=== PATIENT | male | born 1950 | race African-American/Black ===

== ENCOUNTER 2019-04-06 07:08 | Emergency (ER) | payer OTHER ==
[~2019-04-06] VITALS: Ht 175.3 cm; Wt 102.1 kg
[2019-04-06 08:05] LABS: Basophils # (auto) 0 uL; Basophils % (auto) 0.1 % (0.0-2.0); Eosinophils # (auto) 0 uL; Eosinophils % (auto) 0.3 % (0.0-7.0); Hematocrit 40.2 % (41.0-53.0); Lymphocytes # (auto) 0.7 uL; Lymphocytes % (auto) 11.7 % (10.0-50.0); Mean Corpuscular Hemoglobin 28.2 pg (28.0-32.0); Mean Corpuscular Hgb Conc. 32.4 g/dL (32.0-36.0); Mean Corpuscular Volume 86.8 fL (80.0-100.0); Monocytes # (auto) 0.4 uL; Monocytes % (auto) 6.2 % (0.0-12.0); Neutrophils # (auto) 4.9 uL; Neutrophils % (auto) 81.7 % (37.0-80.0); Platelet Count (auto) 125 10^3/uL (140-450); Red Blood Cells 4.63 10^6/uL (4.5-5.90); Red Cell Distribution Width 14.4 % (11.8-14.3); White Blood Cell 5.9 10^3/uL (4.4-10.8)
[2019-04-06 08:22] LABS: Albumin 3.4 g/dL (3.4-5.0); Calcium 7.8 mg/dL (8.5-10.1); Potassium 4.3 mmol/L (3.5-5.1)
[2019-04-06 08:29] LABS: BUN/Creatinine Ratio 14.1; Bilirubin, Total 1.3 mg/dL (0.2-1.0)
[2019-04-06 08:36] LABS: Total Protein 6.7 g/dL (6.4-8.2)
[2019-04-06] MEDS ORDERED: cefTRIAXone 1GM/50ML D5W 50 ML IV ONE (10:00)
[2019-04-06] MEDS ORDERED: FUROSEMIDE 40 MG/4 ML VIAL IV ONE (10:00)
[2019-04-06 10:44] LABS: Urine Bacteria NONE SEEN /hpf (None Seen); Urine Blood Negative /uL (Negative); Urine Specific Gravity 1.011 (1.001-1.035); Urine WBC <1 /hpf (0 - 3)
[2019-04-06 15:13] VITALS: BP 135/66
== END 2019-04-06 15:36 | disposition short-term general hospital (02) ==
LOC: EDBD 07:08 → ER 07:08
DX: J18.9 Pneumonia, unspecified organism (principal); E11.65 Type 2 diabetes mellitus with hyperglycemia; E66.01 Morbid (severe) obesity due to excess calories; E11.21 Type 2 diabetes mellitus with diabetic nephropathy; I87.8 Other specified disorders of veins; E78.5 Hyperlipidemia, unspecified; Z68.33 Body mass index [BMI] 33.0-33.9, adult
CPT/HCPCS: 36415; 71046; 80053; 81001; 84484; 85025; 87040; 93005; 96365; 96375; 99285; J0696; J1940

== ENCOUNTER 2020-06-04 22:26 | Emergency (ER) | payer OTHER ==
[~2020-06-04] VITALS: Ht 266.7 cm; Wt 93.0 kg
[~2020-06-04 22:26] MED LIST: AMLO-489 PO; ASPI81CH43 PO; DABI150C5 PO; GLIP10TA9 PO; HYDR-4833 PO; LISI-646 PO; METF-370 PO; METO-158 PO; NAPR-591 PO; SIME80CH6 PO; SIMV-8 PO
[2020-06-04 23:49] LABS: Basophils # (auto) 0 10 ^3/uL (0-0.2); Basophils % (auto) 0.3 % (0.0-2.0); Eosinophils # (auto) 0 10 ^3/uL (0-0.8); Eosinophils % (auto) 0.3 % (0.0-7.0); Hematocrit 35.2 % (41.0-53.0); Hemoglobin 11.7 g/dL (13.5-17.5); Lymphocytes # (auto) 0.5 10 ^3/uL (0.4-5.4); Lymphocytes % (auto) 6.3 % (10.0-50.0); Mean Corpuscular Hemoglobin 28.1 pg (28.0-32.0); Mean Corpuscular Hgb Conc. 33.1 g/dL (32.0-36.0); Mean Corpuscular Volume 84.8 fL (80.0-100.0); Monocytes # (auto) 0.6 10 ^3/uL (0-1.3); Monocytes % (auto) 6.9 % (0.0-12.0); Neutrophils # (auto) 7.4 10 ^3/uL (1.6-8.6); Neutrophils % (auto) 86.2 % (37.0-80.0); Nucleated Red Blood Cells % 0.2 %; Platelet Count (auto) 149 10^3/uL (140-450); Red Blood Cells 4.15 10^6/uL (4.5-5.90); Red Cell Distribution Width 15.7 % (11.8-14.3); White Blood Cell 8.6 10^3/uL (4.4-10.8)
[2020-06-05 00:08] LABS: Albumin 3.6 g/dL (3.4-5.0); BUN/Creatinine Ratio 14.8; Calcium 8.3 mg/dL (8.5-10.1); Potassium 3.7 mmol/L (3.5-5.1)
[2020-06-05 00:11] LABS: INR 1.08 (0.9-1.15); Partial Thromboplastin Time 26.6 sec (23.0-31.2)
[2020-06-05 00:17] LABS: Total Protein 6.8 g/dL (6.4-8.2)
[2020-06-05 06:36] VITALS: BP 116/64
== END 2020-06-05 06:47 | disposition home or self-care (01) ==
LOC: ER 22:26 → EDBD 22:26 → ER 06-05 06:47
DX: R06.02 Shortness of breath (principal); J44.9 Chronic obstructive pulmonary disease, unspecified; E11.9 Type 2 diabetes mellitus without complications; E78.5 Hyperlipidemia, unspecified; I10 Essential (primary) hypertension
CPT/HCPCS: 36415; 36600; 71045; 80053; 82805; 83880; 84484; 85025; 85379; 85610; 85730; 93005

== ENCOUNTER 2020-07-03 02:14 | Inpatient (IN) | payer OTHER ==
[~2020-07-03] VITALS: Ht 182.9 cm; Wt 46.0 kg
[2020-07-03] MEDS ORDERED: ACETAMINOPHEN 325 MG TAB PO ONE ×2 (02:44→02:45)
[2020-07-03 03:37] LABS: Basophils # (auto) 0 10 ^3/uL (0-0.2); Basophils % (auto) 0.1 % (0.0-2.0); Eosinophils # (auto) 0 10 ^3/uL (0-0.8); Eosinophils % (auto) 0.3 % (0.0-7.0); Hematocrit 35.3 % (41.0-53.0); Hemoglobin 11.4 g/dL (13.5-17.5); Lymphocytes # (auto) 0.5 10 ^3/uL (0.4-5.4); Lymphocytes % (auto) 9.9 % (10.0-50.0); Mean Corpuscular Hemoglobin 27.8 pg (28.0-32.0); Mean Corpuscular Hgb Conc. 32.4 g/dL (32.0-36.0); Mean Corpuscular Volume 85.9 fL (80.0-100.0); Monocytes # (auto) 0.5 10 ^3/uL (0-1.3); Monocytes % (auto) 9.5 % (0.0-12.0); Neutrophils # (auto) 4.1 10 ^3/uL (1.6-8.6); Neutrophils % (auto) 80.2 % (37.0-80.0); Nucleated Red Blood Cells % 0.1 %; Platelet Count (auto) 143 10^3/uL (140-450); Red Cell Distribution Width 15.1 % (11.8-14.3); White Blood Cell 5.2 10^3/uL (4.4-10.8)
[2020-07-03 03:54] LABS: Albumin 3.4 g/dL (3.4-5.0); Calcium 7.9 mg/dL (8.5-10.1); Potassium 4.6 mmol/L (3.5-5.1)
[2020-07-03 04:01] LABS: BUN/Creatinine Ratio 20.5; Bilirubin, Total 1.6 mg/dL (0.2-1.0); Total Protein 6.9 g/dL (6.4-8.2)
[2020-07-03 04:29] LABS: Urine WBC None Seen /hpf (0 - 3)
[2020-07-03 04:52] LABS: Urine Bacteria NONE SEEN /hpf (None Seen); Urine Blood Negative /uL (Negative); Urine Hyaline Cast FEW /lpf (0 - 2); Urine Specific Gravity 1.013 (1.001-1.035)
[2020-07-03 05:35] LABS: INR 1.02 (0.9-1.15); Partial Thromboplastin Time 46.9 sec (23.0-31.2)
[2020-07-03] MEDS ORDERED: cefTRIAXone 1GM/50ML D5W 50 ML IV ONE (09:45)
[2020-07-03] MEDS ORDERED: DexAMETHasone SOD PHOS 10MG/1ML VIAL INJ IV ONE (09:45)
[2020-07-03] MEDS ORDERED: ENOXAPARIN SOD 100 MG/1 ML SYRINGE SC ONE (09:45)
[2020-07-03] MEDS ORDERED: MORPHINE SULF INJ 2 MG/ML SYRINGE 1ML IV PRN ×2 (10:30)
[2020-07-03] MEDS ORDERED: REMDESIVIR PER PHARMACY 0 ML IV SCH (10:30)
[2020-07-03] MEDS ORDERED: diphenhdrAMINE HCL 50 MG/1 ML VL IV PRN (10:30)
[2020-07-03] MEDS ORDERED: ONDANSETRON HCL 4 MG/2 ML VIAL IV PRN (10:30)
[2020-07-03] MEDS ORDERED: LACTULOSE 20Gm/30ML SOLN PO PRN (10:30)
[2020-07-03] MEDS ORDERED: DEXTROSE (50%) 50ML SYRG IV PRN (10:30)
[2020-07-03] MEDS ORDERED: ACETAMINOPHEN 500 MG TAB PO PRN (10:30)
[2020-07-03] MEDS: SODIUM CHLORIDE 0.9% 1,000 ML IV SCH ×2 (10:30→23:31)
[2020-07-03] MEDS ORDERED: NITROGLYCERIN 0.4 MG SL TAB SL PRN (10:30)
[2020-07-03] MEDS ORDERED: TEMAZEPAM 15 MG CAP PO PRN (10:30)
[2020-07-03 11:05] VITALS: BP 109/90
[2020-07-03] MEDS: InsuLIN REG 1unit/0.01ml Soln (100units/ml) SC SCH ×3 (11:48→21:59)
[2020-07-03] MEDS: ACCU-CHEK COMFORT CURVE STRIP VI SCH ×3 (11:49→21:41)
[2020-07-03 13:15] VITALS: BP 125/82
[2020-07-03] MEDS ORDERED: REMDESIVIR 200 MG in NS 210ml LOADING DOSE ADULT IV ONE (15:00)
[2020-07-03] MEDS ORDERED: ATOR40TA52 PO (15:17)
[2020-07-03] MEDS ORDERED: POTA-264 PO (15:18)
[2020-07-03] MEDS ORDERED: LISI-706 PO (15:19)
[2020-07-03] MEDS ORDERED: FURO20TA3 PO (15:21)
[2020-07-03] MEDS ORDERED: METF-372 PO (15:23)
[2020-07-03] MEDS ORDERED: AMLO-496 PO (15:24)
[2020-07-03] MEDS ORDERED: OMEP-260 PO (15:26)
[2020-07-03] MEDS ORDERED: PRED20TA2 PO (15:27)
[2020-07-03] MEDS ORDERED: SIME180C20 PO (15:38)
[2020-07-03 16:42] VITALS: BP 126/81
[2020-07-03 21:42] LABS: BUN/Creatinine Ratio 19.6; Calcium 8.2 mg/dL (8.5-10.1); Potassium 5.3 mmol/L (3.5-5.1)
[2020-07-03] MEDS: FLORASTOR (S. BOULARDII) 250 MG CAP PO SCH (21:57)
[2020-07-03] MEDS: DOXYCYCLINE 100MG/250ML 250 ML IV SCH (21:57)
[2020-07-03] MEDS: FAMOTIDINE (10MG/ML) 2ML VL IV SCH (21:57)
[2020-07-03] MEDS: ATORVASTATIN 20 MG TAB PO SCH (21:58)
[2020-07-03] MEDS: ENOXAPARIN SOD 40 MG/0.4 ML SYRINGE SC SCH (21:58)
[2020-07-03 22:00] VITALS: BP 116/77
[2020-07-03] MEDS: ALBUTEROL SULF HFA 90MCG INH 200DOSE IN PRN (22:24)
[2020-07-03] MEDS: BUDESONIDE (INHALATION) 180 MCG IH IN SCH (22:24)
[2020-07-03] MEDS: traMADol HCL 50 MG TAB PO PRN (23:45)
[2020-07-04 05:00] VITALS: BP 118/66
[2020-07-04] MEDS: ACCU-CHEK COMFORT CURVE STRIP VI SCH ×4 (06:38→22:00)
[2020-07-04] MEDS: InsuLIN REG 1unit/0.01ml Soln (100units/ml) SC SCH ×4 (06:38→22:46)
[2020-07-04 06:59] LABS: Basophils # (auto) 0 10 ^3/uL (0-0.2); Basophils % (auto) 0.1 % (0.0-2.0); Eosinophils # (auto) 0 10 ^3/uL (0-0.8); Hematocrit 30.9 % (41.0-53.0); Hemoglobin 10.4 g/dL (13.5-17.5); Lymphocytes # (auto) 0.5 10 ^3/uL (0.4-5.4); Lymphocytes % (auto) 23.3 % (10.0-50.0); Mean Corpuscular Hemoglobin 27.7 pg (28.0-32.0); Mean Corpuscular Hgb Conc. 33.5 g/dL (32.0-36.0); Mean Corpuscular Volume 82.6 fL (80.0-100.0); Monocytes # (auto) 0.4 10 ^3/uL (0-1.3); Monocytes % (auto) 17.3 % (0.0-12.0); Neutrophils # (auto) 1.3 10 ^3/uL (1.6-8.6); Neutrophils % (auto) 59.3 % (37.0-80.0); Nucleated Red Blood Cells % 0.1 %; Platelet Count (auto) 120 10^3/uL (140-450); Red Blood Cells 3.74 10^6/uL (4.5-5.90); Red Cell Distribution Width 15.4 % (11.8-14.3); White Blood Cell 2.1 10^3/uL (4.4-10.8)
[2020-07-04] MEDS ORDERED: IVERMECTIN 3 MG TAB PO ONE (07:00)
[2020-07-04] MEDS: BUDESONIDE (INHALATION) 180 MCG IH IN SCH ×3 (07:00→20:09)
[2020-07-04 07:19] LABS: Albumin 3.2 g/dL (3.4-5.0); Potassium 4.6 mmol/L (3.5-5.1)
[2020-07-04 07:23] LABS: BUN/Creatinine Ratio 22.1; Bilirubin, Total 1.1 mg/dL (0.2-1.0); Calcium 8.2 mg/dL (8.5-10.1); Total Protein 6.5 g/dL (6.4-8.2)
[2020-07-04 09:00] VITALS: BP 118/77
[2020-07-04] MEDS: DexAMETHasone SOD PHOS 10MG/1ML VIAL INJ IV SCH (09:30)
[2020-07-04] MEDS: ASCORBIC ACID 1,000 MG TAB PO SCH (09:31)
[2020-07-04] MEDS: ASPirin 81 mg TAB PO SCH (09:31)
[2020-07-04] MEDS: DOXYCYCLINE 100MG/250ML 250 ML IV SCH ×2 (09:31→21:46)
[2020-07-04] MEDS: FAMOTIDINE (10MG/ML) 2ML VL IV SCH (09:31)
[2020-07-04] MEDS: ZINC SULFATE 220mg CAP or TAB PO SCH (09:31)
[2020-07-04] MEDS: FLORASTOR (S. BOULARDII) 250 MG CAP PO SCH ×2 (09:31→21:46)
[2020-07-04] MEDS: CHOLECALCIFEROL (VITD3) 2,000 UNIT CAP/TAB PO SCH (09:31)
[2020-07-04] MEDS: ENOXAPARIN SOD 40 MG/0.4 ML SYRINGE SC SCH ×2 (09:32→21:47)
[2020-07-04] MEDS: ALBUTEROL SULF HFA 90MCG INH 200DOSE IN PRN ×3 (10:40→20:09)
[2020-07-04 11:19] LABS: Cholesterol 122 mg/dL (< 200); HDL Cholesterol 63 mg/dL (40-59); LDL Cholesterol 60 mg/dL (< 100); Triglycerides 70 mg/dL (< 150)
[2020-07-04] MEDS: SODIUM CHLORIDE 0.9% 1,000 ML IV SCH (12:49)
[2020-07-04 13:00] VITALS: BP 123/76
[2020-07-04] MEDS: REMDESIVIR 100mg 100 MG in SODIUM CHL 0.9% 230 ML IV SCH (16:30)
[2020-07-04 17:00] VITALS: BP 121/78
[2020-07-04] MEDS: ATORVASTATIN 20 MG TAB PO SCH (21:47)
[2020-07-04 22:00] VITALS: BP 116/73
[2020-07-05 05:00] VITALS: BP 113/74
[2020-07-05] MEDS: ALBUTEROL SULF HFA 90MCG INH 200DOSE IN PRN ×2 (06:55→21:49)
[2020-07-05] MEDS: InsuLIN REG 1unit/0.01ml Soln (100units/ml) SC SCH ×4 (07:00→23:15)
[2020-07-05] MEDS: ACCU-CHEK COMFORT CURVE STRIP VI SCH ×4 (07:04→22:00)
[2020-07-05 09:00] VITALS: BP 127/84
[2020-07-05] MEDS: traMADol HCL 50 MG TAB PO PRN (10:05)
[2020-07-05] MEDS: DexAMETHasone SOD PHOS 10MG/1ML VIAL INJ IV SCH (10:40)
[2020-07-05] MEDS: ZINC SULFATE 220mg CAP or TAB PO SCH (10:41)
[2020-07-05] MEDS: DOXYCYCLINE 100MG/250ML 250 ML IV SCH ×2 (10:41→21:50)
[2020-07-05] MEDS: FAMOTIDINE (10MG/ML) 2ML VL IV SCH (10:41)
[2020-07-05] MEDS: CHOLECALCIFEROL (VITD3) 2,000 UNIT CAP/TAB PO SCH (10:42)
[2020-07-05] MEDS: ASPirin 81 mg TAB PO SCH (10:42)
[2020-07-05] MEDS: ASCORBIC ACID 1,000 MG TAB PO SCH (10:42)
[2020-07-05] MEDS: FLORASTOR (S. BOULARDII) 250 MG CAP PO SCH ×2 (10:42→21:51)
[2020-07-05] MEDS: ENOXAPARIN SOD 40 MG/0.4 ML SYRINGE SC SCH ×2 (10:43→21:52)
[2020-07-05 11:15] LABS: Albumin 3.2 g/dL (3.4-5.0); Calcium 8.8 mg/dL (8.5-10.1); Potassium 4.3 mmol/L (3.5-5.1)
[2020-07-05 11:18] LABS: BUN/Creatinine Ratio 19.7; Total Protein 6.7 g/dL (6.4-8.2)
[2020-07-05] MEDS ORDERED: DOCUSATE SOD 100 MG CAP PO ONE (11:30)
[2020-07-05 13:00] VITALS: BP 113/71
[2020-07-05] MEDS: REMDESIVIR 100mg 100 MG in SODIUM CHL 0.9% 230 ML IV SCH (15:52)
[2020-07-05 17:00] VITALS: BP 144/94
[2020-07-05] MEDS ORDERED: cefTRIAXone 1GM/50ML D5W 50 ML IV ONE (17:30)
[2020-07-05] MEDS: BUDESONIDE (INHALATION) 180 MCG IH IN SCH (21:49)
[2020-07-05] MEDS: DOCUSATE SOD 100 MG CAP PO SCH (21:50)
[2020-07-05] MEDS: ATORVASTATIN 20 MG TAB PO SCH (21:51)
[2020-07-05 22:00] VITALS: BP 146/79
[2020-07-06 05:00] VITALS: BP 116/65
[2020-07-06] MEDS: ALBUTEROL SULF HFA 90MCG INH 200DOSE IN PRN ×2 (06:25→19:21)
[2020-07-06] MEDS: BUDESONIDE (INHALATION) 180 MCG IH IN SCH ×2 (06:25→19:21)
[2020-07-06 06:27] LABS: Albumin 3.1 g/dL (3.4-5.0); Calcium 8.7 mg/dL (8.5-10.1); Potassium 4.6 mmol/L (3.5-5.1)
[2020-07-06] MEDS: ACCU-CHEK COMFORT CURVE STRIP VI SCH ×4 (06:29→21:48)
[2020-07-06 06:32] LABS: Bilirubin, Total 0.8 mg/dL (0.2-1.0); Total Protein 6.6 g/dL (6.4-8.2)
[2020-07-06] MEDS: InsuLIN REG 1unit/0.01ml Soln (100units/ml) SC SCH ×4 (06:34→21:04)
[2020-07-06] MEDS: cefTRIAXone 1GM/50ML D5W 50 ML IV SCH (09:09)
[2020-07-06] MEDS: DexAMETHasone SOD PHOS 10MG/1ML VIAL INJ IV SCH (09:09)
[2020-07-06] MEDS: ASPirin 81 mg TAB PO SCH (09:10)
[2020-07-06] MEDS: DOCUSATE SOD 100 MG CAP PO SCH ×2 (09:10→21:46)
[2020-07-06] MEDS: ZINC SULFATE 220mg CAP or TAB PO SCH (09:10)
[2020-07-06] MEDS: FAMOTIDINE (10MG/ML) 2ML VL IV SCH (09:10)
[2020-07-06] MEDS: FLORASTOR (S. BOULARDII) 250 MG CAP PO SCH ×2 (09:10→21:46)
[2020-07-06] MEDS: CHOLECALCIFEROL (VITD3) 2,000 UNIT CAP/TAB PO SCH (09:10)
[2020-07-06] MEDS: ASCORBIC ACID 1,000 MG TAB PO SCH (09:10)
[2020-07-06] MEDS: ENOXAPARIN SOD 40 MG/0.4 ML SYRINGE SC SCH (09:11)
[2020-07-06 09:40] VITALS: BP 116/65
[2020-07-06] MEDS: DOXYCYCLINE 100MG/250ML 250 ML IV SCH ×2 (12:16→21:46)
[2020-07-06 13:00] VITALS: BP 126/83
[2020-07-06] MEDS ORDERED: DEXTROSE (50%) 50ML SYRG IV PRN (14:45)
[2020-07-06] MEDS: REMDESIVIR 100mg 100 MG in SODIUM CHL 0.9% 230 ML IV SCH (16:12)
[2020-07-06] MEDS: traMADol HCL 50 MG TAB PO PRN (16:14)
[2020-07-06 17:00] VITALS: BP 131/82
[2020-07-06] MEDS: glipiZIDE 5 MG TAB PO SCH (18:07)
[2020-07-06] MEDS: ATORVASTATIN 20 MG TAB PO SCH (21:47)
[2020-07-06] MEDS: METOPROLOL TARTRATE 50 MG TAB PO SCH (21:47)
[2020-07-06] MEDS: DABIGATRAN 75 MG CAP PO SCH (21:58)
[2020-07-07 05:00] VITALS: BP 111/69
[2020-07-07 05:45] LABS: Basophils # (auto) 0 10 ^3/uL (0-0.2); Basophils % (auto) 0.1 % (0.0-2.0); Eosinophils # (auto) 0 10 ^3/uL (0-0.8); Eosinophils % (auto) 0.1 % (0.0-7.0); Hematocrit 33.3 % (41.0-53.0); Hemoglobin 11.3 g/dL (13.5-17.5); Lymphocytes % (auto) 20.8 % (10.0-50.0); Mean Corpuscular Hemoglobin 28.1 pg (28.0-32.0); Mean Corpuscular Volume 82.6 fL (80.0-100.0); Monocytes # (auto) 0.7 10 ^3/uL (0-1.3); Monocytes % (auto) 13.2 % (0.0-12.0); Neutrophils # (auto) 3.3 10 ^3/uL (1.6-8.6); Neutrophils % (auto) 65.8 % (37.0-80.0); Nucleated Red Blood Cells % 0.3 %; Platelet Count (auto) 168 10^3/uL (140-450); Red Blood Cells 4.03 10^6/uL (4.5-5.90); Red Cell Distribution Width 15.2 % (11.8-14.3)
[2020-07-07 06:06] LABS: Potassium 4.6 mmol/L (3.5-5.1)
[2020-07-07] MEDS: InsuLIN REG 1unit/0.01ml Soln (100units/ml) SC SCH ×4 (06:10→21:25)
[2020-07-07] MEDS: ACCU-CHEK COMFORT CURVE STRIP VI SCH ×4 (06:10→21:24)
[2020-07-07] MEDS: glipiZIDE 5 MG TAB PO SCH ×2 (06:10→17:57)
[2020-07-07 06:13] LABS: Albumin 3.3 g/dL (3.4-5.0); BUN/Creatinine Ratio 21.3; Bilirubin, Total 0.8 mg/dL (0.2-1.0); Calcium 9.4 mg/dL (8.5-10.1); Total Protein 6.9 g/dL (6.4-8.2)
[2020-07-07] MEDS: ALBUTEROL SULF HFA 90MCG INH 200DOSE IN PRN (08:40)
[2020-07-07] MEDS: BUDESONIDE (INHALATION) 180 MCG IH IN SCH ×2 (08:41→18:53)
[2020-07-07 09:00] VITALS: BP 101/57
[2020-07-07] MEDS: cefTRIAXone 1GM/50ML D5W 50 ML IV SCH (09:26)
[2020-07-07] MEDS: DOXYCYCLINE 100MG/250ML 250 ML IV SCH ×2 (09:27→21:30)
[2020-07-07] MEDS: FAMOTIDINE (10MG/ML) 2ML VL IV SCH (09:27)
[2020-07-07] MEDS: ZINC SULFATE 220mg CAP or TAB PO SCH (09:27)
[2020-07-07] MEDS: DexAMETHasone SOD PHOS 10MG/1ML VIAL INJ IV SCH (09:27)
[2020-07-07] MEDS: FLORASTOR (S. BOULARDII) 250 MG CAP PO SCH ×2 (09:28→21:22)
[2020-07-07] MEDS: DOCUSATE SOD 100 MG CAP PO SCH ×2 (09:28→21:22)
[2020-07-07] MEDS: DABIGATRAN 75 MG CAP PO SCH ×2 (09:28→21:30)
[2020-07-07] MEDS: METOPROLOL TARTRATE 50 MG TAB PO SCH ×2 (09:28→21:23)
[2020-07-07] MEDS: ASCORBIC ACID 1,000 MG TAB PO SCH (09:29)
[2020-07-07] MEDS: CHOLECALCIFEROL (VITD3) 2,000 UNIT CAP/TAB PO SCH (09:29)
[2020-07-07] MEDS: REMDESIVIR 100mg 100 MG in SODIUM CHL 0.9% 230 ML IV SCH (15:30)
[2020-07-07 17:00] VITALS: BP 136/83
[2020-07-07] MEDS: ATORVASTATIN 20 MG TAB PO SCH (21:23)
[2020-07-07 22:00] VITALS: BP 148/87
[2020-07-08] MEDS: ALBUTEROL SULF HFA 90MCG INH 200DOSE IN PRN ×2 (03:47→20:44)
[2020-07-08] MEDS: traMADol HCL 50 MG TAB PO PRN ×2 (04:05→21:50)
[2020-07-08 05:00] VITALS: BP 112/62
[2020-07-08] MEDS: glipiZIDE 5 MG TAB PO SCH ×2 (05:52→17:33)
[2020-07-08] MEDS: InsuLIN REG 1unit/0.01ml Soln (100units/ml) SC SCH ×4 (05:53→21:50)
[2020-07-08] MEDS: ACCU-CHEK COMFORT CURVE STRIP VI SCH ×4 (05:53→21:26)
[2020-07-08] MEDS: BUDESONIDE (INHALATION) 180 MCG IH IN SCH ×2 (06:38→20:45)
[2020-07-08 06:53] LABS: Calcium 8.9 mg/dL (8.5-10.1); Potassium 4.2 mmol/L (3.5-5.1)
[2020-07-08 08:57] VITALS: BP 100/59
[2020-07-08] MEDS: FAMOTIDINE (10MG/ML) 2ML VL IV SCH (09:20)
[2020-07-08] MEDS: DexAMETHasone SOD PHOS 10MG/1ML VIAL INJ IV SCH (09:20)
[2020-07-08] MEDS: cefTRIAXone 1GM/50ML D5W 50 ML IV SCH (09:20)
[2020-07-08] MEDS: ZINC SULFATE 220mg CAP or TAB PO SCH (09:21)
[2020-07-08] MEDS: DOCUSATE SOD 100 MG CAP PO SCH ×3 (09:21→21:42)
[2020-07-08] MEDS: DOXYCYCLINE 100MG/250ML 250 ML IV SCH (09:21)
[2020-07-08] MEDS: FLORASTOR (S. BOULARDII) 250 MG CAP PO SCH ×2 (09:22→21:25)
[2020-07-08] MEDS: METOPROLOL TARTRATE 50 MG TAB PO SCH ×2 (09:22→21:42)
[2020-07-08] MEDS: DABIGATRAN 75 MG CAP PO SCH ×2 (09:23→21:26)
[2020-07-08] MEDS: CHOLECALCIFEROL (VITD3) 2,000 UNIT CAP/TAB PO SCH (09:24)
[2020-07-08] MEDS: ASCORBIC ACID 1,000 MG TAB PO SCH (09:24)
[2020-07-08 12:30] VITALS: BP 129/89
[2020-07-08 16:35] VITALS: BP 121/62
[2020-07-08] MEDS: ATORVASTATIN 20 MG TAB PO SCH (21:26)
[2020-07-08 22:00] VITALS: BP 134/85
[2020-07-09 05:00] VITALS: BP 116/90
[2020-07-09] MEDS: InsuLIN REG 1unit/0.01ml Soln (100units/ml) SC SCH ×4 (06:00→17:36)
[2020-07-09] MEDS: ALBUTEROL SULF HFA 90MCG INH 200DOSE IN PRN (06:19)
[2020-07-09] MEDS: BUDESONIDE (INHALATION) 180 MCG IH IN SCH ×2 (06:19→20:50)
[2020-07-09] MEDS: ACCU-CHEK COMFORT CURVE STRIP VI SCH ×3 (07:08→17:34)
[2020-07-09] MEDS: glipiZIDE 5 MG TAB PO SCH ×2 (07:38→17:36)
[2020-07-09 08:30] VITALS: BP 124/71
[2020-07-09] MEDS: cefTRIAXone 1GM/50ML D5W 50 ML IV SCH (10:16)
[2020-07-09] MEDS: DexAMETHasone SOD PHOS 10MG/1ML VIAL INJ IV SCH (10:16)
[2020-07-09] MEDS: FAMOTIDINE (10MG/ML) 2ML VL IV SCH (10:16)
[2020-07-09] MEDS: ZINC SULFATE 220mg CAP or TAB PO SCH (10:17)
[2020-07-09] MEDS: DABIGATRAN 75 MG CAP PO SCH (10:17)
[2020-07-09] MEDS: DOCUSATE SOD 100 MG CAP PO SCH (10:17)
[2020-07-09] MEDS: CHOLECALCIFEROL (VITD3) 2,000 UNIT CAP/TAB PO SCH (10:18)
[2020-07-09] MEDS: FLORASTOR (S. BOULARDII) 250 MG CAP PO SCH (10:19)
[2020-07-09] MEDS: ASCORBIC ACID 1,000 MG TAB PO SCH (10:19)
[2020-07-09] MEDS: METOPROLOL TARTRATE 50 MG TAB PO SCH (10:20)
[2020-07-09] MEDS ORDERED: CHOL20007 PO (11:05)
[2020-07-09 11:23] VITALS: BP 118/68
[2020-07-09 13:12] VITALS: BP 124/71
[2020-07-09] MEDS: traMADol HCL 50 MG TAB PO PRN (16:26)
[2020-07-09 17:06] VITALS: BP 134/72
== END 2020-07-09 20:25 | disposition home health service (06) | DRG 871 ==
LOC: EDBD 02:14 → ER 02:14 → TELE 02:15 → TELE-WESTW 13:28
PROVIDERS: ADMIT Internal Medicine; ATTEND Internal Medicine Nephrology
PROC: XW033E5 Introduction of Remdesivir Anti-infective into Peripheral Vein, Percutaneous Approach, New Technology Group 5 (ICD-10-PCS; principal; 2020-07-03)
DX: A41.89 Other specified sepsis (principal); U07.1 COVID-19; J12.82 Pneumonia due to coronavirus disease 2019; J96.21 Acute and chronic respiratory failure with hypoxia; I21.A1 Myocardial infarction type 2; N17.0 Acute kidney failure with tubular necrosis; J44.0 Chronic obstructive pulmonary disease with (acute) lower respiratory infection; R65.20 Severe sepsis without septic shock; E78.5 Hyperlipidemia, unspecified; E11.65 Type 2 diabetes mellitus with hyperglycemia; D63.8 Anemia in other chronic diseases classified elsewhere; I12.9 Hypertensive chronic kidney disease with stage 1 through stage 4 chronic kidney disease, or unspecified chronic kidney disease; N18.31 Chronic kidney disease, stage 3a; E11.21 Type 2 diabetes mellitus with diabetic nephropathy; E11.22 Type 2 diabetes mellitus with diabetic chronic kidney disease; Z79.4 Long term (current) use of insulin; Z99.81 Dependence on supplemental oxygen; Z88.8 Allergy status to other drugs, medicaments and biological substances
CPT/HCPCS: 36415; 71045; 76775; 80048; 80053; 80061; 81001; 82550; 82570; 82962; 83036; 83605; 83880; 84156; 84300; 84443; 84484; 84550; 85025; 85379; 85610; 85652; 85730; 86141; 86850; 86900; 86901; 87040; 87426; 93005; 93306; 94640; 96365; 96372; 96375; G0378; J0696; J1100; J1815; J3490

== ENCOUNTER 2020-08-03 12:47 | Inpatient (IN) | payer OTHER ==
[~2020-08-03] VITALS: Ht 175.3 cm; Wt 121.3 kg
[~2020-08-03 12:47] MED LIST changes: -AMLO-489 PO; +AMLO-496 PO; -ASPI81CH43 PO; +ATOR40TA52 PO; +CHOL20007 PO; -HYDR-4833 PO; -LISI-646 PO; -METF-370 PO; +METF-372 PO; -NAPR-591 PO; +OMEP-260 PO; +SIME180C20 PO; -SIME80CH6 PO; -SIMV-8 PO
[2020-08-03] MEDS ORDERED: methylPREDNISolone SOD SUCC 125 MG/2 ML VL IV ONE (13:00)
[2020-08-03] MEDS ORDERED: ALBUTEROL SULF 2.5 MG/0.5ML(0.5%) NEB SOLN HHN ONE (13:00)
[2020-08-03 14:25] LABS: Basophils # (auto) 0 10 ^3/uL (0-0.2); Basophils % (auto) 0.3 % (0.0-2.0); Eosinophils # (auto) 0 10 ^3/uL (0-0.8); Hemoglobin 12.3 g/dL (13.5-17.5); Lymphocytes # (auto) 1.2 10 ^3/uL (0.4-5.4); Monocytes # (auto) 1.1 10 ^3/uL (0-1.3); Nucleated Red Blood Cells % 0.1 %
[2020-08-03 14:28] LABS: Eosinophils % (auto) 0.1 % (0.0-7.0); Lymphocytes % (auto) 9.7 % (10.0-50.0); Mean Corpuscular Hemoglobin 26.7 pg (28.0-32.0); Mean Corpuscular Hgb Conc. 32.3 g/dL (32.0-36.0); Mean Corpuscular Volume 82.4 fL (80.0-100.0); Monocytes % (auto) 8.9 % (0.0-12.0); Neutrophils # (auto) 10.1 10 ^3/uL (1.6-8.6); Platelet Count (auto) 216 10^3/uL (140-450); Red Blood Cells 4.61 10^6/uL (4.5-5.90); Red Cell Distribution Width 16.6 % (11.8-14.3); White Blood Cell 12.5 10^3/uL (4.4-10.8)
[2020-08-03 14:49] LABS: Albumin 3.4 g/dL (3.4-5.0); Calcium 9.2 mg/dL (8.5-10.1); Magnesium 2.3 mg/dL (1.6-2.6); Potassium 4.2 mmol/L (3.5-5.1)
[2020-08-03 14:52] LABS: Lactic Acid w/Reflex 4.3 mmol/L (0.4-2.0)
[2020-08-03 14:53] LABS: Bilirubin, Total 1.5 mg/dL (0.2-1.0); Total Protein 7.6 g/dL (6.4-8.2)
[2020-08-03 15:13] LABS: BUN/Creatinine Ratio 25.7; CRP High Sensitivity 1.99 mg/dL (< 0.3)
[2020-08-03] MEDS ORDERED: AZITHROMYCIN 500MG/ 250ML 250 ML IV ONE (15:45)
[2020-08-03] MEDS ORDERED: DEXTROSE (50%) 50ML SYRG IV PRN (17:00)
[2020-08-03] MEDS ORDERED: SODIUM CHLORIDE 0.9% 1,000 ML IV ONE (17:00)
[2020-08-03] MEDS ORDERED: NITROGLYCERIN 0.4 MG SL TAB SL PRN (17:00)
[2020-08-03] MEDS ORDERED: ONDANSETRON HCL 4 MG/2 ML VIAL IV PRN (17:00)
[2020-08-03] MEDS ORDERED: MORPHINE SULF INJ 2 MG/ML SYRINGE 1ML IV PRN ×2 (17:00)
[2020-08-03] MEDS ORDERED: HYDROcodone-ACET 5/325MG TAB PO PRN (17:00)
[2020-08-03] MEDS ORDERED: IOHEXOL 350 MG/ML 100ML IJ ONE (17:19)
[2020-08-03] MEDS ORDERED: ENOXAPARIN SOD 120 MG/0.8 ML SYRINGE SC SCH (18:00)
[2020-08-03] MEDS: ACCU-CHEK COMFORT CURVE STRIP VI SCH ×2 (18:10→22:17)
[2020-08-03] MEDS: InsuLIN REG 1unit/0.01ml Soln (100units/ml) SC SCH ×2 (18:15→22:18)
[2020-08-03] MEDS: ALBUTEROL SULF 2.5 MG/0.5ML(0.5%) NEB SOLN NEB SCH (18:54)
[2020-08-03] MEDS: BUDESONIDE (INHALATION) 0.5 MG/2 ML NEB NEB SCH (18:54)
[2020-08-03] MEDS: IPRATROPIUM BROM 0.5 MG/2.5ML INH SOL NEB SCH (18:55)
[2020-08-03] MEDS: ENOXAPARIN SOD 120 MG/0.8 ML SYRINGE SC SCH (20:12)
[2020-08-03 21:35] VITALS: BP 136/71
[2020-08-03 22:00] VITALS: BP 113/71
[2020-08-03] MEDS: ATORVASTATIN 20 MG TAB PO SCH (22:17)
[2020-08-03 23:00] VITALS: BP 113/72
[2020-08-04] VITALS (45 sets, daily range): BP systolic 54–152; BP diastolic 36–97
[2020-08-04 05:16] LABS: Basophils # (auto) 0 10 ^3/uL (0-0.2); Basophils % (auto) 0.1 % (0.0-2.0); Eosinophils # (auto) 0 10 ^3/uL (0-0.8); Hematocrit 30.9 % (41.0-53.0); Hemoglobin 10.4 g/dL (13.5-17.5); Lymphocytes # (auto) 0.4 10 ^3/uL (0.4-5.4); Lymphocytes % (auto) 4.5 % (10.0-50.0); Mean Corpuscular Hemoglobin 27.2 pg (28.0-32.0); Mean Corpuscular Hgb Conc. 33.8 g/dL (32.0-36.0); Mean Corpuscular Volume 80.6 fL (80.0-100.0); Monocytes # (auto) 0.9 10 ^3/uL (0-1.3); Monocytes % (auto) 9.6 % (0.0-12.0); Neutrophils # (auto) 7.8 10 ^3/uL (1.6-8.6); Neutrophils % (auto) 85.8 % (37.0-80.0); Platelet Count (auto) 161 10^3/uL (140-450); Red Blood Cells 3.83 10^6/uL (4.5-5.90); Red Cell Distribution Width 16.7 % (11.8-14.3); White Blood Cell 9.1 10^3/uL (4.4-10.8)
[2020-08-04 05:37] LABS: Potassium 4.5 mmol/L (3.5-5.1)
[2020-08-04 05:43] LABS: BUN/Creatinine Ratio 24.6; Calcium 8.9 mg/dL (8.5-10.1)
[2020-08-04] MEDS: ACCU-CHEK COMFORT CURVE STRIP VI SCH ×4 (05:59→23:33)
[2020-08-04] MEDS: IPRATROPIUM BROM 0.5 MG/2.5ML INH SOL NEB SCH ×3 (06:04→22:32)
[2020-08-04] MEDS: ENOXAPARIN SOD 120 MG/0.8 ML SYRINGE SC SCH (06:05)
[2020-08-04] MEDS: ALBUTEROL SULF 2.5 MG/0.5ML(0.5%) NEB SOLN NEB SCH ×3 (06:05→22:32)
[2020-08-04] MEDS: InsuLIN REG 1unit/0.01ml Soln (100units/ml) SC SCH ×4 (06:06→23:33)
[2020-08-04] MEDS ORDERED: cefTRIAXone 1GM/50ML D5W 50 ML IV SCH (09:00)
[2020-08-04] MEDS: METOPROLOL TARTRATE 25 MG TAB PO SCH ×2 (09:38→20:30)
[2020-08-04] MEDS ORDERED: FAMOTIDINE 20 MG TAB PO SCH (10:00)
[2020-08-04] MEDS ORDERED: AZITHROMYCIN 500MG/ 250ML 250 ML IV SCH (10:00)
[2020-08-04] MEDS ORDERED: ENOXAPARIN SOD 40 MG/0.4 ML SYRINGE SC SCH (10:00)
[2020-08-04] MEDS ORDERED: amLODIPine BESYLATE 5 MG TAB PO SCH (10:00)
[2020-08-04] MEDS: BUDESONIDE (INHALATION) 0.5 MG/2 ML NEB NEB SCH ×2 (10:13→22:33)
[2020-08-04] MEDS ORDERED: ETOMIDATE (2MG/ML) 20ML VIAL IV ONE (10:42)
[2020-08-04] MEDS ORDERED: fentaNYL Drip 2500mCg/250mlNS 250 ML IV ONE (10:43)
[2020-08-04] MEDS ORDERED: ROCURONIUM 10MG/ML 10ML VIAL IV ONE (10:43)
[2020-08-04] MEDS ORDERED: MIDAZOLAM DRIP 50 mg/50mL 50 ML IV SCH (10:45)
[2020-08-04] MEDS ORDERED: fentaNYL Drip 2500mCg/250mlNS 250 ML IV SCH (10:45)
[2020-08-04] MEDS: fentaNYL Drip 2500mCg/250mlNS 250 ML IV SCH (11:45)
[2020-08-04] MEDS: MIDAZOLAM DRIP 50 mg/50mL 50 ML IV SCH ×2 (11:45→14:30)
[2020-08-04] MEDS ORDERED: hydrALAZINE HCL 20 MG/ML VL IV PRN (12:15)
[2020-08-04] MEDS ORDERED: hydrALAZINE HCL 20 MG/ML VL ONE (12:19)
[2020-08-04 14:23] LABS: INR 1.07 (0.9-1.15); Partial Thromboplastin Time 32.2 sec (23.0-31.2)
[2020-08-04] MEDS: SODIUM CHLORIDE 0.9% 1,000 ML IV SCH (15:18)
[2020-08-04] MEDS: NOREPINEPHRINE 8 MG/250ML KIT 250 ML IV SCH ×2 (16:00→21:00)
[2020-08-04] MEDS: ACETAMINOPHEN 500 MG TAB PO PRN (21:32)
[2020-08-04] MEDS: methylPREDNISolone SOD SUCC 40 MG/ML VL IV SCH (21:32)
[2020-08-04] MEDS: ENOXAPARIN SOD 100 MG/1 ML SYRINGE SC SCH (21:32)
[2020-08-04] MEDS: ATORVASTATIN 20 MG TAB PO SCH (21:32)
[2020-08-04] MEDS ORDERED: INSULIN LANTUS (GLARGINE) 1 /0.01ml (100units/ml) SC SCH (22:00)
[2020-08-04] MEDS ORDERED: ALBUMIN 5% 250 ML IV ONE (22:30)
[2020-08-05] VITALS (100 sets, daily range): BP systolic 75–157; BP diastolic 52–102
[2020-08-05 00:31] LABS: Urine Blood 3+ /uL (Negative)
[2020-08-05 00:54] LABS: Urine Amorphous Crystal FEW /hpf (None Seen); Urine Bacteria MOD /hpf (None Seen); Urine Hyaline Cast MOD /lpf (0 - 2); Urine Mucus FEW (None Seen); Urine WBC 28 /hpf (0 - 3)
[2020-08-05] MEDS: ALBUTEROL SULF 2.5 MG/0.5ML(0.5%) NEB SOLN NEB SCH ×5 (02:42→22:24)
[2020-08-05] MEDS: IPRATROPIUM BROM 0.5 MG/2.5ML INH SOL NEB SCH ×6 (02:42→22:24)
[2020-08-05] MEDS: fentaNYL Drip 2500mCg/250mlNS 250 ML IV SCH ×2 (04:09→15:53)
[2020-08-05] MEDS: ACCU-CHEK COMFORT CURVE STRIP VI SCH ×3 (06:18→18:15)
[2020-08-05] MEDS: methylPREDNISolone SOD SUCC 40 MG/ML VL IV SCH (06:18)
[2020-08-05] MEDS: InsuLIN REG 1unit/0.01ml Soln (100units/ml) SC SCH ×3 (06:21→18:00)
[2020-08-05 07:51] LABS: Hematocrit 35.8 % (41.0-53.0); Hemoglobin 11.7 g/dL (13.5-17.5); Mean Corpuscular Hemoglobin 26.5 pg (28.0-32.0); Mean Corpuscular Hgb Conc. 32.6 g/dL (32.0-36.0); Mean Corpuscular Volume 81.2 fL (80.0-100.0); Platelet Count (auto) 193 10^3/uL (140-450); Red Blood Cells 4.41 10^6/uL (4.5-5.90); Red Cell Distribution Width 16.7 % (11.8-14.3)
[2020-08-05 08:00] LABS: Albumin 3.1 g/dL (3.4-5.0); Calcium 8.9 mg/dL (8.5-10.1); Magnesium 1.8 mg/dL (1.6-2.6); Potassium 4.9 mmol/L (3.5-5.1)
[2020-08-05 08:01] LABS: Band Neutrophils % (manual) 0; Basophils % (manual) 0 (0.0-2.0); Blast Cells 0; Eosinophils % (manual) 0 (0-7); Metamyelocytes % 0; Myelocytes % 0; Promyelocytes % 0; Reactive Lymphocytes 0
[2020-08-05 08:04] LABS: BUN/Creatinine Ratio 19.7; Bilirubin, Total 1.4 mg/dL (0.2-1.0); Total Protein 7.4 g/dL (6.4-8.2)
[2020-08-05 08:11] LABS: Lactic Acid w/Reflex 2.9 mmol/L (0.4-2.0)
[2020-08-05 09:00] LABS: Lymphocytes % (manual) 3 (10.0-50.0); Monocytes % (manual) 11 (0-12)
[2020-08-05] MEDS: METOPROLOL TARTRATE 25 MG TAB PO SCH (10:00)
[2020-08-05] MEDS: BUDESONIDE (INHALATION) 0.5 MG/2 ML NEB NEB SCH ×2 (10:01→22:24)
[2020-08-05] MEDS ORDERED: ERGOCALCIFEROL 50,000 UNIT(1.25MG) CAP PO SCH (10:15)
[2020-08-05] MEDS: SODIUM CHLORIDE 0.9% 1,000 ML IV SCH (11:00)
[2020-08-05] MEDS: PANTOPRAZOLE 40 MG/10 ML VIAL INJ IV SCH (12:06)
[2020-08-05] MEDS: ENOXAPARIN SOD 100 MG/1 ML SYRINGE SC SCH ×2 (12:06→22:00)
[2020-08-05] MEDS: MEROPENEM 1GM IVPB 100 ML IV SCH ×2 (12:06→22:00)
[2020-08-05] MEDS: MIDAZOLAM DRIP 50 mg/50mL 50 ML IV SCH ×2 (12:09→15:53)
[2020-08-05] MEDS ORDERED: MAGNESIUM SULFATE 1GM/100ML 100 ML IV ONE (14:15)
[2020-08-05] MEDS: NOREPINEPHRINE 8 MG/250ML KIT 250 ML IV SCH (15:30)
[2020-08-05] MEDS: INSULIN LANTUS (GLARGINE) 1 /0.01ml (100units/ml) SC SCH (22:00)
[2020-08-05] MEDS: ATORVASTATIN 20 MG TAB PO SCH (22:00)
[2020-08-06] VITALS (109 sets, daily range): BP systolic 76–157; BP diastolic 41–84
[2020-08-06] MEDS: ACETAMINOPHEN 500 MG TAB PO PRN (00:31)
[2020-08-06] MEDS: MIDAZOLAM DRIP 50 mg/50mL 50 ML IV SCH ×2 (01:57→18:00)
[2020-08-06] MEDS: ALBUTEROL SULF 2.5 MG/0.5ML(0.5%) NEB SOLN NEB SCH ×6 (02:46→22:14)
[2020-08-06] MEDS: IPRATROPIUM BROM 0.5 MG/2.5ML INH SOL NEB SCH ×6 (02:46→22:14)
[2020-08-06] MEDS: SODIUM CHLORIDE 0.9% 1,000 ML IV SCH (05:49)
[2020-08-06] MEDS: ACCU-CHEK COMFORT CURVE STRIP VI SCH ×4 (05:49→18:03)
[2020-08-06] MEDS: InsuLIN REG 1unit/0.01ml Soln (100units/ml) SC SCH ×4 (06:00→18:36)
[2020-08-06 07:37] LABS: Albumin 2.7 g/dL (3.4-5.0); Calcium 8.7 mg/dL (8.5-10.1); Magnesium 2.4 mg/dL (1.6-2.6); Potassium 5.2 mmol/L (3.5-5.1)
[2020-08-06 07:38] LABS: Hemoglobin 10.8 g/dL (13.5-17.5); Platelet Count (auto) 212 10^3/uL (140-450)
[2020-08-06 07:41] LABS: Hematocrit 33.8 % (41.0-53.0); Mean Corpuscular Hemoglobin 26.9 pg (28.0-32.0); Red Blood Cells 4.02 10^6/uL (4.5-5.90); Red Cell Distribution Width 16.6 % (11.8-14.3)
[2020-08-06 07:42] LABS: BUN/Creatinine Ratio 13.8; Bilirubin, Total 1.1 mg/dL (0.2-1.0); Total Protein 7.3 g/dL (6.4-8.2)
[2020-08-06 07:43] LABS: White Blood Cell 34.4 10^3/uL (4.4-10.8)
[2020-08-06 07:45] LABS: Basophils % (manual) 0 (0.0-2.0); Blast Cells 0; Eosinophils % (manual) 0 (0-7); Myelocytes % 0; Promyelocytes % 0; Reactive Lymphocytes 0
[2020-08-06] MEDS ORDERED: SODIUM CHLORIDE 0.9% 500 ML IV ONE (08:00)
[2020-08-06] MEDS: BUDESONIDE (INHALATION) 0.5 MG/2 ML NEB NEB SCH ×2 (08:32→22:14)
[2020-08-06] MEDS: NOREPINEPHRINE 8 MG/250ML KIT 250 ML IV SCH ×2 (08:54→22:55)
[2020-08-06] MEDS ORDERED: SODIUM CHLORIDE 0.9% 1,000 ML IV SCH ×2 (09:15→11:30)
[2020-08-06] MEDS ORDERED: Glucerna 1.2 Cal 1Liter BOTTLE GT SCH (09:30)
[2020-08-06] MEDS ORDERED: SODIUM CHLORIDE 0.9% 1,000 ML IV ONE (09:30)
[2020-08-06] MEDS: LINEZOLID 600MG/300ML 300 ML IV SCH ×3 (09:45→22:00)
[2020-08-06 10:55] LABS: Band Neutrophils % (manual) 9; Lymphocytes % (manual) 1 (10.0-50.0); Metamyelocytes % 1; Monocytes % (manual) 7 (0-12)
[2020-08-06] MEDS ORDERED: LACTULOSE 20Gm/30ML SOLN PO PRN (11:30)
[2020-08-06] MEDS ORDERED: FUROSEMIDE 100 MG/10ML VIAL IV ONE (14:15)
[2020-08-06] MEDS: SODIUM BICARBONATE 50ML VIAL 150 ML in D5W 5% 1,000 ML IV SCH (15:20)
[2020-08-06] MEDS: SODIUM ZIRCONIUM CYCL 10 GM PAK PO SCH ×2 (15:21→19:30)
[2020-08-06] MEDS: ENOXAPARIN SOD 100 MG/1 ML SYRINGE SC SCH (15:22)
[2020-08-06] MEDS: MEROPENEM 1GM IVPB 100 ML IV SCH ×2 (15:22→22:00)
[2020-08-06] MEDS: PANTOPRAZOLE 40 MG/10 ML VIAL INJ IV SCH (17:40)
[2020-08-06] MEDS: methylPREDNISolone SOD SUCC 40 MG/ML VL IV SCH (17:41)
[2020-08-06] MEDS: VASOPRESSIN 50 UNITS in D5W 5% 247.5 ML IV SCH (17:49)
[2020-08-06] MEDS: fentaNYL Drip 2500mCg/250mlNS 250 ML IV SCH (18:00)
[2020-08-06] MEDS: INSULIN LANTUS (GLARGINE) 1 /0.01ml (100units/ml) SC SCH (22:00)
[2020-08-06] MEDS: DOCUSATE SOD 100 MG CAP PO SCH (22:00)
[2020-08-06] MEDS: ATORVASTATIN 20 MG TAB PO SCH (22:00)
[2020-08-07] VITALS (102 sets, daily range): BP systolic 51–188; BP diastolic 12–105
[2020-08-07] MEDS: MIDAZOLAM DRIP 50 mg/50mL 50 ML IV SCH ×3 (00:19→20:35)
[2020-08-07] MEDS: IPRATROPIUM BROM 0.5 MG/2.5ML INH SOL NEB SCH ×6 (02:42→22:28)
[2020-08-07] MEDS: ALBUTEROL SULF 2.5 MG/0.5ML(0.5%) NEB SOLN NEB SCH ×6 (02:42→22:28)
[2020-08-07] MEDS: SODIUM BICARBONATE 50ML VIAL 150 ML in D5W 5% 1,000 ML IV SCH ×4 (03:05→23:40)
[2020-08-07] MEDS: SODIUM ZIRCONIUM CYCL 10 GM PAK PO SCH ×3 (03:39→19:30)
[2020-08-07] MEDS: NOREPINEPHRINE 8 MG/250ML KIT 250 ML IV SCH (03:55)
[2020-08-07 05:41] LABS: Basophils # (auto) 0 10 ^3/uL (0-0.2); Eosinophils # (auto) 0 10 ^3/uL (0-0.8); Hemoglobin 9.1 g/dL (13.5-17.5)
[2020-08-07 05:43] LABS: Hematocrit 28.1 % (41.0-53.0); Lymphocytes # (auto) 0.5 10 ^3/uL (0.4-5.4); Lymphocytes % (auto) 1.9 % (10.0-50.0); Mean Corpuscular Hemoglobin 26.5 pg (28.0-32.0); Mean Corpuscular Hgb Conc. 32.4 g/dL (32.0-36.0); Mean Corpuscular Volume 81.9 fL (80.0-100.0); Neutrophils # (auto) 22.9 10 ^3/uL (1.6-8.6); Neutrophils % (auto) 94.1 % (37.0-80.0); Nucleated Red Blood Cells % 0.3 %; Platelet Count (auto) 172 10^3/uL (140-450); Red Blood Cells 3.43 10^6/uL (4.5-5.90); Red Cell Distribution Width 16.6 % (11.8-14.3); White Blood Cell 24.3 10^3/uL (4.4-10.8)
[2020-08-07 05:54] LABS: INR 1.02 (0.9-1.15)
[2020-08-07 06:00] LABS: Potassium 5.2 mmol/L (3.5-5.1)
[2020-08-07] MEDS: InsuLIN REG 1unit/0.01ml Soln (100units/ml) SC SCH ×4 (06:00→18:07)
[2020-08-07] MEDS: ACCU-CHEK COMFORT CURVE STRIP VI SCH ×4 (06:00→18:07)
[2020-08-07 06:03] LABS: Lactic Acid w/Reflex 4.7 mmol/L (0.4-2.0)
[2020-08-07 06:16] LABS: BUN/Creatinine Ratio 14.8; Bilirubin, Total 1.4 mg/dL (0.2-1.0); Calcium 7.4 mg/dL (8.5-10.1); Magnesium 2.3 mg/dL (1.6-2.6); Total Protein 5.8 g/dL (6.4-8.2)
[2020-08-07] MEDS: BUDESONIDE (INHALATION) 0.5 MG/2 ML NEB NEB SCH ×2 (06:25→22:28)
[2020-08-07] MEDS: VASOPRESSIN 50 UNITS in D5W 5% 247.5 ML IV SCH (08:00)
[2020-08-07] MEDS: LINEZOLID 600MG/300ML 300 ML IV SCH ×2 (08:56→22:00)
[2020-08-07] MEDS: methylPREDNISolone SOD SUCC 40 MG/ML VL IV SCH (08:56)
[2020-08-07] MEDS: PANTOPRAZOLE 40 MG/10 ML VIAL INJ IV SCH (08:56)
[2020-08-07] MEDS: MEROPENEM 1GM IVPB 100 ML IV SCH ×2 (08:56→22:00)
[2020-08-07] MEDS: DOCUSATE SOD 100 MG CAP PO SCH ×2 (08:57→22:00)
[2020-08-07] MEDS: ENOXAPARIN SOD 100 MG/1 ML SYRINGE SC SCH (08:57)
[2020-08-07] MEDS ORDERED: EPINEPHrine HCL 250 ML IV ONE (10:32)
[2020-08-07] MEDS: EPINEPHrine HCL 250 ML IV SCH (10:50)
[2020-08-07] MEDS: INSULIN LANTUS (GLARGINE) 1 /0.01ml (100units/ml) SC SCH (22:00)
[2020-08-07] MEDS: ATORVASTATIN 20 MG TAB PO SCH (22:00)
[2020-08-08] VITALS (104 sets, daily range): BP systolic 75–242; BP diastolic 45–143
[2020-08-08] MEDS: MIDAZOLAM DRIP 50 mg/50mL 50 ML IV SCH ×3 (01:05→21:45)
[2020-08-08] MEDS: NOREPINEPHRINE 8 MG/250ML KIT 250 ML IV SCH (02:00)
[2020-08-08] MEDS: ALBUTEROL SULF 2.5 MG/0.5ML(0.5%) NEB SOLN NEB SCH ×6 (02:32→22:01)
[2020-08-08] MEDS: IPRATROPIUM BROM 0.5 MG/2.5ML INH SOL NEB SCH ×6 (02:33→22:02)
[2020-08-08] MEDS: SODIUM ZIRCONIUM CYCL 10 GM PAK PO SCH ×3 (03:30→19:30)
[2020-08-08] MEDS: ACCU-CHEK COMFORT CURVE STRIP VI SCH ×4 (06:00→17:29)
[2020-08-08] MEDS: InsuLIN REG 1unit/0.01ml Soln (100units/ml) SC SCH ×4 (06:00→16:32)
[2020-08-08] MEDS: VASOPRESSIN 50 UNITS in D5W 5% 247.5 ML IV SCH (07:51)
[2020-08-08] MEDS: SODIUM BICARBONATE 50ML VIAL 150 ML in D5W 5% 1,000 ML IV SCH ×2 (09:46→18:25)
[2020-08-08] MEDS: MEROPENEM 1GM IVPB 100 ML IV SCH ×2 (09:46→21:42)
[2020-08-08] MEDS: methylPREDNISolone SOD SUCC 40 MG/ML VL IV SCH (09:47)
[2020-08-08] MEDS: PANTOPRAZOLE 40 MG/10 ML VIAL INJ IV SCH (09:47)
[2020-08-08] MEDS: DOCUSATE SOD 100 MG CAP PO SCH ×2 (09:48→21:43)
[2020-08-08] MEDS: ENOXAPARIN SOD 100 MG/1 ML SYRINGE SC SCH (09:48)
[2020-08-08] MEDS: LINEZOLID 600MG/300ML 300 ML IV SCH ×2 (09:48→21:43)
[2020-08-08] MEDS: BUDESONIDE (INHALATION) 0.5 MG/2 ML NEB NEB SCH ×2 (09:57→18:28)
[2020-08-08] MEDS ORDERED: METOPROLOL TARTRATE 1MG/1ML-5ML VIAL IV ONE (10:12)
[2020-08-08] MEDS ORDERED: METOPROLOL TARTRATE 1MG/1ML-5ML VIAL IV PRN (10:15)
[2020-08-08 10:38] LABS: Basophils # (auto) 0 10 ^3/uL (0-0.2); Eosinophils # (auto) 0 10 ^3/uL (0-0.8); Eosinophils % (auto) 0.2 % (0.0-7.0); Hematocrit 26.7 % (41.0-53.0); Hemoglobin 8.9 g/dL (13.5-17.5); Lymphocytes # (auto) 0.6 10 ^3/uL (0.4-5.4); Lymphocytes % (auto) 3.1 % (10.0-50.0); Mean Corpuscular Hemoglobin 26.7 pg (28.0-32.0); Mean Corpuscular Hgb Conc. 33.2 g/dL (32.0-36.0); Mean Corpuscular Volume 80.5 fL (80.0-100.0); Monocytes # (auto) 1.2 10 ^3/uL (0-1.3); Monocytes % (auto) 6.6 % (0.0-12.0); Neutrophils # (auto) 16.1 10 ^3/uL (1.6-8.6); Neutrophils % (auto) 90.1 % (37.0-80.0); Nucleated Red Blood Cells % 0.2 %; Platelet Count (auto) 148 10^3/uL (140-450); Red Blood Cells 3.31 10^6/uL (4.5-5.90); Red Cell Distribution Width 16.1 % (11.8-14.3); White Blood Cell 17.8 10^3/uL (4.4-10.8)
[2020-08-08 11:45] LABS: Albumin 2.1 g/dL (3.4-5.0); BUN/Creatinine Ratio 16.1; Bilirubin, Total 0.9 mg/dL (0.2-1.0); Calcium 7.5 mg/dL (8.5-10.1)
[2020-08-08] MEDS: EPINEPHrine HCL 250 ML IV SCH (12:30)
[2020-08-08] MEDS: fentaNYL Drip 2500mCg/250mlNS 250 ML IV SCH ×3 (13:00→21:49)
[2020-08-08] MEDS: PHENYLEPHRINE IV 250 ML IV SCH ×4 (20:14→21:50)
[2020-08-08] MEDS: INSULIN LANTUS (GLARGINE) 1 /0.01ml (100units/ml) SC SCH (20:18)
[2020-08-08] MEDS: ATORVASTATIN 20 MG TAB PO SCH (21:43)
[2020-08-09] VITALS (98 sets, daily range): BP systolic 64–194; BP diastolic 38–124
[2020-08-09] MEDS: NOREPINEPHRINE 8 MG/250ML KIT 250 ML IV SCH ×2 (01:04→19:00)
[2020-08-09] MEDS: ACCU-CHEK COMFORT CURVE STRIP VI SCH ×4 (01:57→19:31)
[2020-08-09] MEDS: ALBUTEROL SULF 2.5 MG/0.5ML(0.5%) NEB SOLN NEB SCH ×5 (01:57→18:07)
[2020-08-09] MEDS: InsuLIN REG 1unit/0.01ml Soln (100units/ml) SC SCH ×4 (01:57→19:13)
[2020-08-09] MEDS: IPRATROPIUM BROM 0.5 MG/2.5ML INH SOL NEB SCH ×5 (01:58→18:07)
[2020-08-09] MEDS: SODIUM ZIRCONIUM CYCL 10 GM PAK PO SCH (03:21)
[2020-08-09] MEDS: SODIUM BICARBONATE 50ML VIAL 150 ML in D5W 5% 1,000 ML IV SCH (03:23)
[2020-08-09] MEDS: MIDAZOLAM DRIP 50 mg/50mL 50 ML IV SCH ×5 (03:24→23:09)
[2020-08-09] MEDS: PHENYLEPHRINE IV 250 ML IV SCH ×3 (06:10→13:55)
[2020-08-09 06:11] LABS: Basophils # (auto) 0 10 ^3/uL (0-0.2); Eosinophils # (auto) 0 10 ^3/uL (0-0.8); Hematocrit 22.7 % (41.0-53.0); Hemoglobin 7.9 g/dL (13.5-17.5); Monocytes # (auto) 0.6 10 ^3/uL (0-1.3); Neutrophils % (auto) 92.5 % (37.0-80.0); Red Cell Distribution Width 16.3 % (11.8-14.3)
[2020-08-09 06:12] LABS: Basophils % (auto) 0.1 % (0.0-2.0); Lymphocytes # (auto) 0.2 10 ^3/uL (0.4-5.4); Mean Corpuscular Hemoglobin 27.2 pg (28.0-32.0); Mean Corpuscular Hgb Conc. 34.7 g/dL (32.0-36.0); Mean Corpuscular Volume 78.4 fL (80.0-100.0); Monocytes % (auto) 5.4 % (0.0-12.0); Nucleated Red Blood Cells % 0.1 %; Platelet Count (auto) 116 10^3/uL (140-450); Red Blood Cells 2.89 10^6/uL (4.5-5.90); White Blood Cell 11.9 10^3/uL (4.4-10.8)
[2020-08-09 06:29] LABS: Albumin 1.8 g/dL (3.4-5.0); Calcium 7.4 mg/dL (8.5-10.1); Potassium 3.9 mmol/L (3.5-5.1)
[2020-08-09 06:34] LABS: BUN/Creatinine Ratio 22.4; Bilirubin, Total 1.1 mg/dL (0.2-1.0); Total Protein 5.4 g/dL (6.4-8.2)
[2020-08-09] MEDS ORDERED: PROPOFOL 100 ML IV ONE (07:25)
[2020-08-09] MEDS: PROPOFOL 100 ML IV SCH (07:58)
[2020-08-09] MEDS: VASOPRESSIN 50 UNITS in D5W 5% 247.5 ML IV SCH (07:59)
[2020-08-09] MEDS: MEROPENEM 1GM IVPB 100 ML IV SCH ×2 (08:07→22:58)
[2020-08-09] MEDS: DexAMETHasone SOD PHOS 10MG/1ML VIAL INJ IV SCH (08:07)
[2020-08-09] MEDS: DOCUSATE SOD 100 MG CAP PO SCH ×2 (08:10→22:59)
[2020-08-09] MEDS: ENOXAPARIN SOD 100 MG/1 ML SYRINGE SC SCH (08:10)
[2020-08-09] MEDS: PANTOPRAZOLE 40 MG/10 ML VIAL INJ IV SCH (09:01)
[2020-08-09] MEDS: SODIUM CHLORIDE 0.9% 1,000 ML IV SCH ×2 (09:44→19:32)
[2020-08-09] MEDS: acetaZOLAMIDE SODIUM 500 MG VL IV SCH ×2 (10:00→12:03)
[2020-08-09] MEDS: BUDESONIDE (INHALATION) 0.5 MG/2 ML NEB NEB SCH (10:23)
[2020-08-09] MEDS: LINEZOLID 600MG/300ML 300 ML IV SCH ×2 (12:04→22:58)
[2020-08-09] MEDS: EPINEPHrine HCL 250 ML IV SCH (12:30)
[2020-08-09] MEDS: fentaNYL Drip 2500mCg/250mlNS 250 ML IV SCH (13:00)
[2020-08-09] MEDS: POTASSIUM CHL 20MEQ/100ML 100 ML IV SCH ×2 (14:18→18:07)
[2020-08-09] MEDS ORDERED: POTASSIUM CHL 20MEQ/100ML 100 ML IV ONE (17:52)
[2020-08-09] MEDS ORDERED: acetaZOLAMIDE SODIUM 500 MG VL IV SCH (22:00)
[2020-08-09] MEDS: ATORVASTATIN 20 MG TAB PO SCH (22:59)
[2020-08-09] MEDS: INSULIN LANTUS (GLARGINE) 1 /0.01ml (100units/ml) SC SCH (23:00)
[2020-08-10] VITALS (106 sets, daily range): BP systolic 89–174; BP diastolic 51–83
[2020-08-10] MEDS: BUDESONIDE (INHALATION) 0.5 MG/2 ML NEB NEB SCH ×3 (00:21→19:35)
[2020-08-10] MEDS: ALBUTEROL SULF 2.5 MG/0.5ML(0.5%) NEB SOLN NEB SCH ×7 (00:21→22:57)
[2020-08-10] MEDS: IPRATROPIUM BROM 0.5 MG/2.5ML INH SOL NEB SCH ×7 (00:21→22:57)
[2020-08-10] MEDS: InsuLIN REG 1unit/0.01ml Soln (100units/ml) SC SCH ×4 (01:28→23:53)
[2020-08-10] MEDS: ACCU-CHEK COMFORT CURVE STRIP VI SCH ×4 (01:28→23:53)
[2020-08-10] MEDS: SODIUM CHLORIDE 0.9% 1,000 ML IV SCH ×2 (07:00→15:20)
[2020-08-10] MEDS: PHENYLEPHRINE IV 250 ML IV SCH (07:10)
[2020-08-10] MEDS: PROPOFOL 100 ML IV SCH (07:30)
[2020-08-10] MEDS: VASOPRESSIN 50 UNITS in D5W 5% 247.5 ML IV SCH (08:00)
[2020-08-10] MEDS: NOREPINEPHRINE 8 MG/250ML KIT 250 ML IV SCH (08:14)
[2020-08-10] MEDS: ENOXAPARIN SOD 100 MG/1 ML SYRINGE SC SCH (08:56)
[2020-08-10] MEDS: LINEZOLID 600MG/300ML 300 ML IV SCH ×2 (08:56→23:43)
[2020-08-10] MEDS: DOCUSATE SOD 100 MG CAP PO SCH ×2 (08:56→23:54)
[2020-08-10] MEDS: MIDAZOLAM DRIP 50 mg/50mL 50 ML IV SCH ×2 (09:06→14:01)
[2020-08-10] MEDS: DexAMETHasone SOD PHOS 10MG/1ML VIAL INJ IV SCH (09:49)
[2020-08-10] MEDS: PANTOPRAZOLE 40 MG/10 ML VIAL INJ IV SCH (09:49)
[2020-08-10] MEDS: MEROPENEM 1GM IVPB 100 ML IV SCH ×2 (11:13→23:43)
[2020-08-10] MEDS: fentaNYL Drip 2500mCg/250mlNS 250 ML IV SCH (11:20)
[2020-08-10] MEDS: ALBUMIN 25% 50 ML IV SCH ×2 (13:48→20:00)
[2020-08-10] MEDS: INSULIN LANTUS (GLARGINE) 1 /0.01ml (100units/ml) SC SCH (23:53)
[2020-08-10] MEDS: ATORVASTATIN 20 MG TAB PO SCH (23:54)
[2020-08-11] VITALS (90 sets, daily range): BP systolic 83–157; BP diastolic 45–81
[2020-08-11] MEDS: ALBUTEROL SULF 2.5 MG/0.5ML(0.5%) NEB SOLN NEB SCH ×6 (02:32→22:02)
[2020-08-11] MEDS: IPRATROPIUM BROM 0.5 MG/2.5ML INH SOL NEB SCH ×6 (02:32→22:02)
[2020-08-11] MEDS: ALBUMIN 25% 50 ML IV SCH (03:41)
[2020-08-11] MEDS: PROPOFOL 100 ML IV SCH ×2 (04:12→08:43)
[2020-08-11] MEDS: NOREPINEPHRINE 8 MG/250ML KIT 250 ML IV SCH (04:14)
[2020-08-11] MEDS: MIDAZOLAM DRIP 50 mg/50mL 50 ML IV SCH ×2 (04:15→11:09)
[2020-08-11] MEDS: fentaNYL Drip 2500mCg/250mlNS 250 ML IV SCH (04:17)
[2020-08-11] MEDS: BUDESONIDE (INHALATION) 0.5 MG/2 ML NEB NEB SCH ×2 (05:57→18:39)
[2020-08-11] MEDS: InsuLIN REG 1unit/0.01ml Soln (100units/ml) SC SCH ×4 (06:00→23:55)
[2020-08-11 06:19] LABS: Basophils # (auto) 0 10 ^3/uL (0-0.2); Eosinophils # (auto) 0 10 ^3/uL (0-0.8); Lymphocytes # (auto) 0.5 10 ^3/uL (0.4-5.4); Monocytes # (auto) 0.9 10 ^3/uL (0-1.3); Neutrophils # (auto) 8.3 10 ^3/uL (1.6-8.6); Red Cell Distribution Width 16.5 % (11.8-14.3); White Blood Cell 9.7 10^3/uL (4.4-10.8)
[2020-08-11 06:22] LABS: Hematocrit 22.1 % (41.0-53.0); Hemoglobin 7.5 g/dL (13.5-17.5); Lymphocytes % (auto) 4.9 % (10.0-50.0); Mean Corpuscular Hemoglobin 27.7 pg (28.0-32.0); Mean Corpuscular Hgb Conc. 33.8 g/dL (32.0-36.0); Mean Corpuscular Volume 81.9 fL (80.0-100.0); Monocytes % (auto) 9.6 % (0.0-12.0); Neutrophils % (auto) 85.5 % (37.0-80.0); Nucleated Red Blood Cells % 0.1 %; Platelet Count (auto) 126 10^3/uL (140-450); Red Blood Cells 2.69 10^6/uL (4.5-5.90)
[2020-08-11 06:42] LABS: Potassium 4.3 mmol/L (3.5-5.1)
[2020-08-11 06:49] LABS: Albumin 2.3 g/dL (3.4-5.0); BUN/Creatinine Ratio 26.1; Bilirubin, Total 0.9 mg/dL (0.2-1.0); Magnesium 2.3 mg/dL (1.6-2.6); Total Protein 5.6 g/dL (6.4-8.2)
[2020-08-11] MEDS: SODIUM CHLORIDE 0.9% 1,000 ML IV SCH (08:43)
[2020-08-11] MEDS: ACCU-CHEK COMFORT CURVE STRIP VI SCH ×4 (08:43→23:53)
[2020-08-11] MEDS: LINEZOLID 600MG/300ML 300 ML IV SCH ×2 (09:02→23:26)
[2020-08-11] MEDS: PANTOPRAZOLE 40 MG/10 ML VIAL INJ IV SCH (09:58)
[2020-08-11] MEDS: DexAMETHasone SOD PHOS 10MG/1ML VIAL INJ IV SCH (09:58)
[2020-08-11] MEDS: ENOXAPARIN SOD 100 MG/1 ML SYRINGE SC SCH ×3 (09:58→23:26)
[2020-08-11] MEDS: DOCUSATE SOD 100 MG CAP PO SCH ×2 (09:59→23:26)
[2020-08-11] MEDS: MEROPENEM 1GM IVPB 100 ML IV SCH (11:09)
[2020-08-11] MEDS ORDERED: HEPARIN IN NS 1000Units/500mL 0 ML ONE (12:15)
[2020-08-11] MEDS ORDERED: LIDOCAINE 2%HCL (LOCAL ANESTH.) INJ 20ML MDV ONE (12:15)
[2020-08-11] MEDS ORDERED: IOHEXOL 350 MG/ML 100ML IJ ONE ×2 (12:15→15:43)
[2020-08-11] MEDS ORDERED: HEPARIN SODIUM (PORCINE) 5000 UNITS/ML 1ML VIAL ONE (16:05)
[2020-08-11] MEDS ORDERED: ENOXAPARIN SOD 30 MG/0.3 ML SYRINGE IV ONE (16:30)
[2020-08-11] MEDS ORDERED: ENOXAPARIN SOD 30 MG/0.3 ML SYRINGE ONE (16:38)
[2020-08-11] MEDS ORDERED: RIVAROXABAN 15 MG TAB PO SCH (22:00)
[2020-08-11] MEDS: ATORVASTATIN 20 MG TAB PO SCH (23:26)
[2020-08-11] MEDS: INSULIN LANTUS (GLARGINE) 1 /0.01ml (100units/ml) SC SCH (23:53)
[2020-08-12] VITALS (101 sets, daily range): BP systolic 70–135; BP diastolic 33–94
[2020-08-12] MEDS: MEROPENEM 1GM IVPB 100 ML IV SCH ×2 (00:05→11:14)
[2020-08-12] MEDS: fentaNYL Drip 2500mCg/250mlNS 250 ML IV SCH ×2 (00:06→22:55)
[2020-08-12] MEDS: MIDAZOLAM DRIP 50 mg/50mL 50 ML IV SCH ×3 (02:07→22:50)
[2020-08-12] MEDS: ALBUTEROL SULF 2.5 MG/0.5ML(0.5%) NEB SOLN NEB SCH ×5 (02:59→22:12)
[2020-08-12] MEDS: IPRATROPIUM BROM 0.5 MG/2.5ML INH SOL NEB SCH ×5 (02:59→22:12)
[2020-08-12] MEDS ORDERED: ALBUMIN 5% 250 ML IV ONE ×2 (03:00)
[2020-08-12] MEDS: SODIUM CHLORIDE 0.9% 1,000 ML IV SCH (04:26)
[2020-08-12] MEDS: ACCU-CHEK COMFORT CURVE STRIP VI SCH ×3 (06:45→18:23)
[2020-08-12] MEDS: InsuLIN REG 1unit/0.01ml Soln (100units/ml) SC SCH ×3 (06:47→18:21)
[2020-08-12 07:55] LABS: Basophils # (auto) 0 10 ^3/uL (0-0.2); Basophils % (auto) 0.1 % (0.0-2.0); Eosinophils # (auto) 0 10 ^3/uL (0-0.8); Hemoglobin 7.6 g/dL (13.5-17.5); Lymphocytes # (auto) 0.9 10 ^3/uL (0.4-5.4); White Blood Cell 12.5 10^3/uL (4.4-10.8)
[2020-08-12 07:57] LABS: Eosinophils % (auto) 0.2 % (0.0-7.0); Hematocrit 22.9 % (41.0-53.0); Lymphocytes % (auto) 7.3 % (10.0-50.0); Mean Corpuscular Hemoglobin 27.2 pg (28.0-32.0); Mean Corpuscular Hgb Conc. 33.4 g/dL (32.0-36.0); Mean Corpuscular Volume 81.3 fL (80.0-100.0); Monocytes # (auto) 1.2 10 ^3/uL (0-1.3); Monocytes % (auto) 9.7 % (0.0-12.0); Neutrophils # (auto) 10.3 10 ^3/uL (1.6-8.6); Neutrophils % (auto) 82.7 % (37.0-80.0); Nucleated Red Blood Cells % 0.5 %; Platelet Count (auto) 148 10^3/uL (140-450); Red Blood Cells 2.81 10^6/uL (4.5-5.90); Red Cell Distribution Width 16.5 % (11.8-14.3)
[2020-08-12 08:18] LABS: BUN/Creatinine Ratio 28.3; Calcium 8.1 mg/dL (8.5-10.1); Potassium 4.9 mmol/L (3.5-5.1)
[2020-08-12] MEDS ORDERED: FUROSEMIDE 20 MG/2 ML VIAL IV ONE (09:45)
[2020-08-12] MEDS: DOCUSATE SOD 100 MG CAP PO SCH ×2 (10:00→22:50)
[2020-08-12] MEDS: BUDESONIDE (INHALATION) 0.5 MG/2 ML NEB NEB SCH ×2 (10:00→22:12)
[2020-08-12] MEDS: DexAMETHasone SOD PHOS 10MG/1ML VIAL INJ IV SCH (11:13)
[2020-08-12] MEDS: PANTOPRAZOLE 40 MG/10 ML VIAL INJ IV SCH (11:13)
[2020-08-12] MEDS: ENOXAPARIN SOD 100 MG/1 ML SYRINGE SC SCH ×2 (11:14→22:52)
[2020-08-12] MEDS: LINEZOLID 600MG/300ML 300 ML IV SCH ×2 (13:09→22:50)
[2020-08-12] MEDS: NOREPINEPHRINE 8 MG/250ML KIT 250 ML IV SCH (22:49)
[2020-08-12] MEDS: ATORVASTATIN 20 MG TAB PO SCH (22:52)
[2020-08-12] MEDS: INSULIN LANTUS (GLARGINE) 1 /0.01ml (100units/ml) SC SCH (23:08)
[2020-08-13] VITALS (106 sets, daily range): BP systolic 90–153; BP diastolic 59–92
[2020-08-13] MEDS: MEROPENEM 1GM IVPB 100 ML IV SCH ×2 (01:40→10:17)
[2020-08-13] MEDS: ACCU-CHEK COMFORT CURVE STRIP VI SCH ×4 (01:40→18:22)
[2020-08-13] MEDS: IPRATROPIUM BROM 0.5 MG/2.5ML INH SOL NEB SCH ×6 (02:09→22:47)
[2020-08-13] MEDS: ALBUTEROL SULF 2.5 MG/0.5ML(0.5%) NEB SOLN NEB SCH ×6 (02:10→22:47)
[2020-08-13] MEDS: MIDAZOLAM DRIP 50 mg/50mL 50 ML IV SCH ×4 (03:13→23:41)
[2020-08-13] MEDS: InsuLIN REG 1unit/0.01ml Soln (100units/ml) SC SCH ×4 (05:58→18:00)
[2020-08-13 07:12] LABS: Basophils # (auto) 0 10 ^3/uL (0-0.2); Basophils % (auto) 0.1 % (0.0-2.0); Eosinophils # (auto) 0 10 ^3/uL (0-0.8); Hematocrit 22.2 % (41.0-53.0); Lymphocytes # (auto) 0.8 10 ^3/uL (0.4-5.4)
[2020-08-13 07:15] LABS: Eosinophils % (auto) 0.3 % (0.0-7.0); Hemoglobin 7.4 g/dL (13.5-17.5); Lymphocytes % (auto) 8.2 % (10.0-50.0); Mean Corpuscular Hemoglobin 27.3 pg (28.0-32.0); Mean Corpuscular Hgb Conc. 33.5 g/dL (32.0-36.0); Mean Corpuscular Volume 81.5 fL (80.0-100.0); Monocytes # (auto) 0.8 10 ^3/uL (0-1.3); Monocytes % (auto) 7.8 % (0.0-12.0); Neutrophils # (auto) 8.6 10 ^3/uL (1.6-8.6); Neutrophils % (auto) 83.6 % (37.0-80.0); Nucleated Red Blood Cells % 0.5 %; Platelet Count (auto) 126 10^3/uL (140-450); Red Blood Cells 2.73 10^6/uL (4.5-5.90); Red Cell Distribution Width 16.4 % (11.8-14.3); White Blood Cell 10.2 10^3/uL (4.4-10.8)
[2020-08-13 07:34] LABS: Potassium 4.6 mmol/L (3.5-5.1)
[2020-08-13 07:43] LABS: BUN/Creatinine Ratio 33.3; Calcium 8.7 mg/dL (8.5-10.1)
[2020-08-13] MEDS: BUDESONIDE (INHALATION) 0.5 MG/2 ML NEB NEB SCH ×2 (09:54→22:47)
[2020-08-13] MEDS: DOCUSATE SOD 100 MG CAP PO SCH ×2 (10:00→22:54)
[2020-08-13] MEDS: DexAMETHasone SOD PHOS 10MG/1ML VIAL INJ IV SCH (10:17)
[2020-08-13] MEDS: ENOXAPARIN SOD 100 MG/1 ML SYRINGE SC SCH ×2 (10:17→22:54)
[2020-08-13] MEDS: PANTOPRAZOLE 40 MG/10 ML VIAL INJ IV SCH (10:17)
[2020-08-13] MEDS: fentaNYL Drip 2500mCg/250mlNS 250 ML IV SCH ×2 (11:08→22:49)
[2020-08-13] MEDS: LINEZOLID 600MG/300ML 300 ML IV SCH ×2 (12:12→22:53)
[2020-08-13] MEDS ORDERED: METOCLOPRAMIDE HCL 5MG/ml INJ 2ml VIAL IV PRN (19:00)
[2020-08-13] MEDS: NOREPINEPHRINE 8 MG/250ML KIT 250 ML IV SCH (22:48)
[2020-08-13] MEDS: INSULIN LANTUS (GLARGINE) 1 /0.01ml (100units/ml) SC SCH (22:50)
[2020-08-13] MEDS: ATORVASTATIN 20 MG TAB PO SCH (22:54)
[2020-08-14] VITALS (101 sets, daily range): BP systolic 91–122; BP diastolic 61–77
[2020-08-14] MEDS: MEROPENEM 1GM IVPB 100 ML IV SCH ×3 (01:28→23:29)
[2020-08-14] MEDS: ACCU-CHEK COMFORT CURVE STRIP VI SCH ×5 (01:29→23:31)
[2020-08-14] MEDS ORDERED: PHENYLEPHRINE IV 250 ML IV SCH (02:00)
[2020-08-14] MEDS: IPRATROPIUM BROM 0.5 MG/2.5ML INH SOL NEB SCH ×6 (02:14→22:31)
[2020-08-14] MEDS: ALBUTEROL SULF 2.5 MG/0.5ML(0.5%) NEB SOLN NEB SCH ×6 (02:14→22:31)
[2020-08-14] MEDS: MIDAZOLAM DRIP 50 mg/50mL 50 ML IV SCH ×2 (03:27→20:54)
[2020-08-14] MEDS: InsuLIN REG 1unit/0.01ml Soln (100units/ml) SC SCH ×5 (06:00→23:31)
[2020-08-14] MEDS: BUDESONIDE (INHALATION) 0.5 MG/2 ML NEB NEB SCH ×2 (06:39→22:30)
[2020-08-14 07:05] LABS: Basophils # (auto) 0 10 ^3/uL (0-0.2); Eosinophils # (auto) 0 10 ^3/uL (0-0.8); Eosinophils % (auto) 0.3 % (0.0-7.0); Hemoglobin 7.3 g/dL (13.5-17.5); Lymphocytes # (auto) 0.9 10 ^3/uL (0.4-5.4); Mean Corpuscular Hemoglobin 27.2 pg (28.0-32.0); Monocytes # (auto) 0.7 10 ^3/uL (0-1.3); Neutrophils % (auto) 84.9 % (37.0-80.0); Red Blood Cells 2.68 10^6/uL (4.5-5.90)
[2020-08-14 07:08] LABS: Basophils % (auto) 0.4 % (0.0-2.0); Hematocrit 21.8 % (41.0-53.0); Lymphocytes % (auto) 8.1 % (10.0-50.0); Mean Corpuscular Hgb Conc. 33.3 g/dL (32.0-36.0); Mean Corpuscular Volume 81.5 fL (80.0-100.0); Monocytes % (auto) 6.3 % (0.0-12.0); Neutrophils # (auto) 9.4 10 ^3/uL (1.6-8.6); Nucleated Red Blood Cells % 0.5 %; Platelet Count (auto) 128 10^3/uL (140-450); Red Cell Distribution Width 16.8 % (11.8-14.3); White Blood Cell 11.1 10^3/uL (4.4-10.8)
[2020-08-14 07:27] LABS: BUN/Creatinine Ratio 32.4; Calcium 8.6 mg/dL (8.5-10.1); Magnesium 2.1 mg/dL (1.6-2.6)
[2020-08-14] MEDS: DOCUSATE SOD 100 MG CAP PO SCH (10:00)
[2020-08-14] MEDS: LINEZOLID 600MG/300ML 300 ML IV SCH ×2 (10:37→20:30)
[2020-08-14] MEDS: DexAMETHasone SOD PHOS 10MG/1ML VIAL INJ IV SCH (10:37)
[2020-08-14] MEDS: PANTOPRAZOLE 40 MG/10 ML VIAL INJ IV SCH (10:37)
[2020-08-14] MEDS: ENOXAPARIN SOD 100 MG/1 ML SYRINGE SC SCH ×2 (10:38→20:54)
[2020-08-14] MEDS: fentaNYL Drip 2500mCg/250mlNS 250 ML IV SCH (12:22)
[2020-08-14] MEDS: DOCUSATE ORAL LIQUID 100 MG/10 ML UD GT SCH ×2 (12:59→20:53)
[2020-08-14] MEDS: PROPOFOL 100 ML IV SCH (20:30)
[2020-08-14] MEDS: ATORVASTATIN 20 MG TAB PO SCH (20:54)
[2020-08-14] MEDS: INSULIN LANTUS (GLARGINE) 1 /0.01ml (100units/ml) SC SCH (23:30)
[2020-08-14] MEDS: METOCLOPRAMIDE HCL 5MG/ml INJ 2ml VIAL IV SCH (23:31)
[2020-08-14] MEDS: NOREPINEPHRINE 8 MG/250ML KIT 250 ML IV SCH (23:33)
[2020-08-15] VITALS (100 sets, daily range): BP systolic 89–114; BP diastolic 56–78
[2020-08-15] MEDS: IPRATROPIUM BROM 0.5 MG/2.5ML INH SOL NEB SCH ×6 (02:30→22:03)
[2020-08-15] MEDS: ALBUTEROL SULF 2.5 MG/0.5ML(0.5%) NEB SOLN NEB SCH ×6 (02:30→22:03)
[2020-08-15] MEDS: fentaNYL Drip 2500mCg/250mlNS 250 ML IV SCH (04:57)
[2020-08-15] MEDS: MIDAZOLAM DRIP 50 mg/50mL 50 ML IV SCH ×2 (04:58→20:03)
[2020-08-15] MEDS: ACCU-CHEK COMFORT CURVE STRIP VI SCH ×3 (05:16→18:00)
[2020-08-15] MEDS: METOCLOPRAMIDE HCL 5MG/ml INJ 2ml VIAL IV SCH ×3 (05:16→18:54)
[2020-08-15] MEDS: InsuLIN REG 1unit/0.01ml Soln (100units/ml) SC SCH ×3 (05:16→18:00)
[2020-08-15 05:37] LABS: Basophils # (auto) 0 10 ^3/uL (0-0.2); Basophils % (auto) 0.3 % (0.0-2.0); Eosinophils # (auto) 0 10 ^3/uL (0-0.8); Eosinophils % (auto) 0.3 % (0.0-7.0); Monocytes # (auto) 0.6 10 ^3/uL (0-1.3); Neutrophils # (auto) 7.9 10 ^3/uL (1.6-8.6); Platelet Count (auto) 111 10^3/uL (140-450); White Blood Cell 9.3 10^3/uL (4.4-10.8)
[2020-08-15 05:40] LABS: Hematocrit 20.2 % (41.0-53.0); Lymphocytes # (auto) 0.7 10 ^3/uL (0.4-5.4); Lymphocytes % (auto) 7.4 % (10.0-50.0); Mean Corpuscular Hemoglobin 27.8 pg (28.0-32.0); Mean Corpuscular Hgb Conc. 34.1 g/dL (32.0-36.0); Mean Corpuscular Volume 81.4 fL (80.0-100.0); Monocytes % (auto) 6.4 % (0.0-12.0); Neutrophils % (auto) 85.6 % (37.0-80.0); Nucleated Red Blood Cells % 0.8 %; Red Blood Cells 2.48 10^6/uL (4.5-5.90); Red Cell Distribution Width 16.3 % (11.8-14.3)
[2020-08-15 05:44] LABS: BUN/Creatinine Ratio 33.8; Calcium 8.1 mg/dL (8.5-10.1); Potassium 4.9 mmol/L (3.5-5.1)
[2020-08-15 06:07] LABS: Hemoglobin 6.9 g/dL (13.5-17.5)
[2020-08-15] MEDS: BUDESONIDE (INHALATION) 0.5 MG/2 ML NEB NEB SCH ×2 (06:08→22:03)
[2020-08-15] MEDS: LINEZOLID 600MG/300ML 300 ML IV SCH ×2 (09:58→20:01)
[2020-08-15] MEDS: PANTOPRAZOLE 40 MG/10 ML VIAL INJ IV SCH (09:58)
[2020-08-15] MEDS: DexAMETHasone SOD PHOS 4 MG/1ML SDV INJ IV SCH (09:59)
[2020-08-15] MEDS: ENOXAPARIN SOD 100 MG/1 ML SYRINGE SC SCH ×2 (09:59→20:02)
[2020-08-15] MEDS: DOCUSATE ORAL LIQUID 100 MG/10 ML UD GT SCH ×2 (09:59→20:01)
[2020-08-15] MEDS: MEROPENEM 1GM IVPB 100 ML IV SCH ×2 (10:00→22:30)
[2020-08-15] MEDS: PROPOFOL 100 ML IV SCH (19:38)
[2020-08-15] MEDS: ATORVASTATIN 20 MG TAB PO SCH (20:01)
[2020-08-16] VITALS (101 sets, daily range): BP systolic 79–134; BP diastolic 53–82
[2020-08-16] MEDS: METOCLOPRAMIDE HCL 5MG/ml INJ 2ml VIAL IV SCH ×5 (00:38→23:57)
[2020-08-16] MEDS: ACCU-CHEK COMFORT CURVE STRIP VI SCH ×5 (00:39→23:58)
[2020-08-16] MEDS: INSULIN LANTUS (GLARGINE) 1 /0.01ml (100units/ml) SC SCH ×2 (00:40→22:00)
[2020-08-16] MEDS: fentaNYL Drip 2500mCg/250mlNS 250 ML IV SCH ×3 (01:26→22:30)
[2020-08-16] MEDS: InsuLIN REG 1unit/0.01ml Soln (100units/ml) SC SCH ×5 (06:00→23:58)
[2020-08-16] MEDS: IPRATROPIUM BROM 0.5 MG/2.5ML INH SOL NEB SCH ×6 (06:13→22:15)
[2020-08-16] MEDS: ALBUTEROL SULF 2.5 MG/0.5ML(0.5%) NEB SOLN NEB SCH ×6 (06:13→22:15)
[2020-08-16] MEDS: BUDESONIDE (INHALATION) 0.5 MG/2 ML NEB NEB SCH ×2 (06:15→22:15)
[2020-08-16 06:18] LABS: Basophils # (auto) 0 10 ^3/uL (0-0.2); Basophils % (auto) 0.2 % (0.0-2.0); Eosinophils # (auto) 0.1 10 ^3/uL (0-0.8); Eosinophils % (auto) 0.8 % (0.0-7.0); Hematocrit 27.4 % (41.0-53.0); Hemoglobin 9.3 g/dL (13.5-17.5); Lymphocytes # (auto) 1.1 10 ^3/uL (0.4-5.4); Lymphocytes % (auto) 9.5 % (10.0-50.0); Mean Corpuscular Hemoglobin 28.3 pg (28.0-32.0); Mean Corpuscular Hgb Conc. 33.8 g/dL (32.0-36.0); Mean Corpuscular Volume 83.8 fL (80.0-100.0); Monocytes # (auto) 0.9 10 ^3/uL (0-1.3); Monocytes % (auto) 7.8 % (0.0-12.0); Neutrophils % (auto) 81.7 % (37.0-80.0); Nucleated Red Blood Cells % 1.2 %; Platelet Count (auto) 105 10^3/uL (140-450); Red Blood Cells 3.27 10^6/uL (4.5-5.90); Red Cell Distribution Width 16.1 % (11.8-14.3); White Blood Cell 11.1 10^3/uL (4.4-10.8)
[2020-08-16 06:32] LABS: Calcium 8.9 mg/dL (8.5-10.1); Potassium 4.3 mmol/L (3.5-5.1)
[2020-08-16 06:34] LABS: BUN/Creatinine Ratio 30.6
[2020-08-16] MEDS: DexAMETHasone SOD PHOS 4 MG/1ML SDV INJ IV SCH (09:33)
[2020-08-16] MEDS: MIDAZOLAM DRIP 50 mg/50mL 50 ML IV SCH ×4 (09:33→17:46)
[2020-08-16] MEDS: DOCUSATE ORAL LIQUID 100 MG/10 ML UD GT SCH ×2 (09:33→22:00)
[2020-08-16] MEDS: ENOXAPARIN SOD 100 MG/1 ML SYRINGE SC SCH ×2 (09:34→22:00)
[2020-08-16] MEDS: PANTOPRAZOLE 40 MG/10 ML VIAL INJ IV SCH (09:34)
[2020-08-16] MEDS: DEXTROSE (50%) 50ML SYRG IV PRN ×2 (09:55→16:00)
[2020-08-16] MEDS: PROPOFOL 100 ML IV SCH (10:00)
[2020-08-16] MEDS: MEROPENEM 1GM IVPB 100 ML IV SCH ×2 (11:36→22:00)
[2020-08-16] MEDS: NOREPINEPHRINE 8 MG/250ML KIT 250 ML IV SCH (15:15)
[2020-08-16] MEDS: D5W/SOD CHL 0.45% 1,000 ML IV SCH (18:57)
[2020-08-16] MEDS: ATORVASTATIN 20 MG TAB PO SCH (22:00)
[2020-08-17] VITALS (96 sets, daily range): BP systolic 59–132; BP diastolic 44–79
[2020-08-17] MEDS: IPRATROPIUM BROM 0.5 MG/2.5ML INH SOL NEB SCH ×5 (01:59→23:06)
[2020-08-17] MEDS: ALBUTEROL SULF 2.5 MG/0.5ML(0.5%) NEB SOLN NEB SCH ×5 (01:59→23:06)
[2020-08-17] MEDS: PROPOFOL 100 ML IV SCH ×3 (02:28→12:41)
[2020-08-17] MEDS: METOCLOPRAMIDE HCL 5MG/ml INJ 2ml VIAL IV SCH ×4 (05:56→23:49)
[2020-08-17] MEDS: InsuLIN REG 1unit/0.01ml Soln (100units/ml) SC SCH ×4 (05:56→23:49)
[2020-08-17] MEDS: ACCU-CHEK COMFORT CURVE STRIP VI SCH ×4 (05:56→23:49)
[2020-08-17] MEDS: MIDAZOLAM DRIP 50 mg/50mL 50 ML IV SCH ×5 (05:57→17:20)
[2020-08-17] MEDS: DEXTROSE (50%) 50ML SYRG IV PRN (06:09)
[2020-08-17 06:23] LABS: Basophils # (auto) 0 10 ^3/uL (0-0.2); Basophils % (auto) 0.3 % (0.0-2.0); Eosinophils # (auto) 0.1 10 ^3/uL (0-0.8); Eosinophils % (auto) 0.5 % (0.0-7.0); Hematocrit 28.4 % (41.0-53.0); Hemoglobin 9.5 g/dL (13.5-17.5); Lymphocytes # (auto) 1.1 10 ^3/uL (0.4-5.4); Lymphocytes % (auto) 9.2 % (10.0-50.0); Mean Corpuscular Hgb Conc. 33.5 g/dL (32.0-36.0); Mean Corpuscular Volume 83.4 fL (80.0-100.0); Monocytes # (auto) 0.8 10 ^3/uL (0-1.3); Monocytes % (auto) 7.1 % (0.0-12.0); Neutrophils # (auto) 9.5 10 ^3/uL (1.6-8.6); Neutrophils % (auto) 82.9 % (37.0-80.0); Nucleated Red Blood Cells % 0.6 %; Platelet Count (auto) 170 10^3/uL (140-450); Red Blood Cells 3.41 10^6/uL (4.5-5.90); Red Cell Distribution Width 16.5 % (11.8-14.3); White Blood Cell 11.5 10^3/uL (4.4-10.8)
[2020-08-17 06:47] LABS: BUN/Creatinine Ratio 27.6; Calcium 7.9 mg/dL (8.5-10.1); Potassium 4.4 mmol/L (3.5-5.1)
[2020-08-17] MEDS: BUDESONIDE (INHALATION) 0.5 MG/2 ML NEB NEB SCH ×2 (06:52→18:46)
[2020-08-17] MEDS: fentaNYL Drip 2500mCg/250mlNS 250 ML IV SCH ×2 (08:11→17:19)
[2020-08-17] MEDS: DOCUSATE ORAL LIQUID 100 MG/10 ML UD GT SCH ×2 (08:56→22:26)
[2020-08-17] MEDS: DexAMETHasone SOD PHOS 4 MG/1ML SDV INJ IV SCH (08:56)
[2020-08-17] MEDS: MEROPENEM 1GM IVPB 100 ML IV SCH ×2 (08:57→22:26)
[2020-08-17] MEDS: PANTOPRAZOLE 40 MG/10 ML VIAL INJ IV SCH (08:57)
[2020-08-17] MEDS: ENOXAPARIN SOD 100 MG/1 ML SYRINGE SC SCH ×2 (11:13→22:26)
[2020-08-17] MEDS ORDERED: DEXTROSE (50%) 50ML SYRG IV PRN (12:45)
[2020-08-17] MEDS ORDERED: levoFLOXacin 750MG 150 ML IV ONE (13:00)
[2020-08-17] MEDS: NOREPINEPHRINE 8 MG/250ML KIT 250 ML IV SCH (15:15)
[2020-08-17] MEDS: D5W/SOD CHL 0.45% 1,000 ML IV SCH (16:39)
[2020-08-17] MEDS: ATORVASTATIN 20 MG TAB PO SCH (22:26)
[2020-08-17] MEDS: SENNA 8.6 MG TAB PO PRN (22:27)
[2020-08-17] MEDS: LACTULOSE 20Gm/30ML SOLN PO PRN (22:27)
[2020-08-18] VITALS (104 sets, daily range): BP systolic 87–120; BP diastolic 40–78
[2020-08-18] MEDS: ALBUTEROL SULF 2.5 MG/0.5ML(0.5%) NEB SOLN NEB SCH ×5 (02:44→22:07)
[2020-08-18] MEDS: IPRATROPIUM BROM 0.5 MG/2.5ML INH SOL NEB SCH ×5 (02:44→22:07)
[2020-08-18] MEDS: ACCU-CHEK COMFORT CURVE STRIP VI SCH ×3 (04:51→18:18)
[2020-08-18] MEDS: METOCLOPRAMIDE HCL 5MG/ml INJ 2ml VIAL IV SCH ×3 (05:43→18:18)
[2020-08-18] MEDS: fentaNYL Drip 2500mCg/250mlNS 250 ML IV SCH ×2 (05:44→19:02)
[2020-08-18 05:46] LABS: Basophils # (auto) 0 10 ^3/uL (0-0.2); Basophils % (auto) 0.1 % (0.0-2.0); Eosinophils # (auto) 0.1 10 ^3/uL (0-0.8); Eosinophils % (auto) 0.3 % (0.0-7.0); Hematocrit 28.9 % (41.0-53.0); Hemoglobin 9.6 g/dL (13.5-17.5); Lymphocytes # (auto) 1.6 10 ^3/uL (0.4-5.4); Lymphocytes % (auto) 9.5 % (10.0-50.0); Mean Corpuscular Hemoglobin 28.3 pg (28.0-32.0); Mean Corpuscular Hgb Conc. 33.3 g/dL (32.0-36.0); Mean Corpuscular Volume 84.8 fL (80.0-100.0); Monocytes # (auto) 1.5 10 ^3/uL (0-1.3); Monocytes % (auto) 8.8 % (0.0-12.0); Neutrophils # (auto) 13.6 10 ^3/uL (1.6-8.6); Neutrophils % (auto) 81.3 % (37.0-80.0); Nucleated Red Blood Cells % 0.9 %; Platelet Count (auto) 116 10^3/uL (140-450); Red Blood Cells 3.41 10^6/uL (4.5-5.90); White Blood Cell 16.8 10^3/uL (4.4-10.8)
[2020-08-18] MEDS: InsuLIN REG 1unit/0.01ml Soln (100units/ml) SC SCH ×3 (06:00→18:00)
[2020-08-18 06:03] LABS: INR 1.19 (0.9-1.15)
[2020-08-18 06:07] LABS: BUN/Creatinine Ratio 26.4; Calcium 8.2 mg/dL (8.5-10.1); Magnesium 1.9 mg/dL (1.6-2.6)
[2020-08-18] MEDS: levoFLOXacin 750MG 150 ML IV SCH (08:55)
[2020-08-18] MEDS ORDERED: MAGNESIUM SULFATE 1GM/100ML 100 ML IV ONE (09:30)
[2020-08-18] MEDS ORDERED: FUROSEMIDE 20 MG/2 ML VIAL IV ONE (09:30)
[2020-08-18] MEDS: DOCUSATE ORAL LIQUID 100 MG/10 ML UD GT SCH ×2 (09:40→21:23)
[2020-08-18] MEDS: PANTOPRAZOLE 40 MG/10 ML VIAL INJ IV SCH (09:41)
[2020-08-18] MEDS: ENOXAPARIN SOD 100 MG/1 ML SYRINGE SC SCH ×2 (09:42→21:23)
[2020-08-18] MEDS: DexAMETHasone SOD PHOS 4 MG/1ML SDV INJ IV SCH (09:42)
[2020-08-18] MEDS: BUDESONIDE (INHALATION) 0.5 MG/2 ML NEB NEB SCH ×2 (10:15→18:12)
[2020-08-18] MEDS: MEROPENEM 1GM IVPB 100 ML IV SCH ×2 (10:44→21:23)
[2020-08-18] MEDS: PROPOFOL 100 ML IV SCH ×2 (12:00→18:15)
[2020-08-18] MEDS: NOREPINEPHRINE 8 MG/250ML KIT 250 ML IV SCH (12:00)
[2020-08-18] MEDS: MIDAZOLAM DRIP 50 mg/50mL 50 ML IV SCH ×2 (15:18→20:42)
[2020-08-18] MEDS ORDERED: NOREPINEPHRINE BITARTRATE 16 MG in SODIUM CHL 0.9% 234 ML IV SCH (19:45)
[2020-08-18] MEDS: ATORVASTATIN 20 MG TAB PO SCH (21:23)
[2020-08-18] MEDS: LACTULOSE 20Gm/30ML SOLN PO PRN (21:23)
[2020-08-18] MEDS: SENNA 8.6 MG TAB PO PRN (21:23)
[2020-08-19] VITALS (77 sets, daily range): BP systolic 48–148; BP diastolic 26–87
[2020-08-19] MEDS: ALBUTEROL SULF 2.5 MG/0.5ML(0.5%) NEB SOLN NEB SCH ×7 (02:10→22:20)
[2020-08-19] MEDS: IPRATROPIUM BROM 0.5 MG/2.5ML INH SOL NEB SCH ×7 (02:10→22:20)
[2020-08-19] MEDS: PROPOFOL 100 ML IV SCH (04:30)
[2020-08-19] MEDS: ACCU-CHEK COMFORT CURVE STRIP VI SCH ×4 (05:54→18:00)
[2020-08-19] MEDS: fentaNYL Drip 2500mCg/250mlNS 250 ML IV SCH ×2 (06:00→19:19)
[2020-08-19] MEDS: InsuLIN REG 1unit/0.01ml Soln (100units/ml) SC SCH ×4 (06:00→18:00)
[2020-08-19] MEDS: METOCLOPRAMIDE HCL 5MG/ml INJ 2ml VIAL IV SCH ×4 (06:05→19:13)
[2020-08-19] MEDS: MIDAZOLAM DRIP 50 mg/50mL 50 ML IV SCH (06:05)
[2020-08-19] MEDS: MEROPENEM 1GM IVPB 100 ML IV SCH (10:31)
[2020-08-19] MEDS: PANTOPRAZOLE 40 MG/10 ML VIAL INJ IV SCH (10:32)
[2020-08-19] MEDS: DexAMETHasone SOD PHOS 4 MG/1ML SDV INJ IV SCH (10:32)
[2020-08-19] MEDS: ENOXAPARIN SOD 100 MG/1 ML SYRINGE SC SCH (10:32)
[2020-08-19] MEDS: levoFLOXacin 750MG 150 ML IV SCH (10:32)
[2020-08-19] MEDS: DOCUSATE ORAL LIQUID 100 MG/10 ML UD GT SCH (10:32)
[2020-08-19] MEDS: BUDESONIDE (INHALATION) 0.5 MG/2 ML NEB NEB SCH ×3 (10:36→22:39)
[2020-08-19 11:40] LABS: Basophils # (auto) 0 10 ^3/uL (0-0.2); Basophils % (auto) 0.3 % (0.0-2.0); Eosinophils # (auto) 0 10 ^3/uL (0-0.8); Eosinophils % (auto) 0.2 % (0.0-7.0); Hematocrit 28.4 % (41.0-53.0); Hemoglobin 9.1 g/dL (13.5-17.5); Lymphocytes # (auto) 0.8 10 ^3/uL (0.4-5.4); Lymphocytes % (auto) 5.8 % (10.0-50.0); Mean Corpuscular Hemoglobin 27.5 pg (28.0-32.0); Mean Corpuscular Hgb Conc. 32.2 g/dL (32.0-36.0); Mean Corpuscular Volume 85.5 fL (80.0-100.0); Monocytes # (auto) 0.8 10 ^3/uL (0-1.3); Monocytes % (auto) 5.8 % (0.0-12.0); Neutrophils # (auto) 12.6 10 ^3/uL (1.6-8.6); Neutrophils % (auto) 87.9 % (37.0-80.0); Nucleated Red Blood Cells % 0.8 %; Platelet Count (auto) 130 10^3/uL (140-450); Red Blood Cells 3.32 10^6/uL (4.5-5.90); Red Cell Distribution Width 17.5 % (11.8-14.3); White Blood Cell 14.4 10^3/uL (4.4-10.8)
[2020-08-19 12:01] LABS: BUN/Creatinine Ratio 24.8; Calcium 8.4 mg/dL (8.5-10.1); Magnesium 1.9 mg/dL (1.6-2.6); Potassium 4.5 mmol/L (3.5-5.1)
[2020-08-19] MEDS ORDERED: MAGNESIUM SULFATE 1GM/100ML 100 ML IV ONE (13:45)
[2020-08-19] MEDS ORDERED: FUROSEMIDE 40 MG/4 ML VIAL IV ONE (13:45)
[2020-08-19] MEDS ORDERED: SODIUM CHLOR 0.9% PF (SALINE LOCK) 10ML VIAL/SYR IV SCH (22:00)
[2020-08-19] MEDS ORDERED: SODIUM CHLORIDE 0.9% 500 ML IV ONE (22:15)
[2020-08-19] MEDS ORDERED: VASOPRESSIN 50 UNITS in D5W 5% 247.5 ML IV SCH (22:15)
[2020-08-19] MEDS ORDERED: EPINEPHrine HCL 250 ML IV ONE (22:25)
[2020-08-19] MEDS ORDERED: SODIUM BICARBONATE 8.4% INJ 50ML SYRINGE ONE (22:46)
[2020-08-19] MEDS ORDERED: CALCIUM CHLOR(10%) 100MG/ML 10ML SYRINGE IV ONE (22:58)
[2020-08-19] MEDS ORDERED: EPINEPHrine HCL 1 MG/10 ML SYRG IV ONE (22:58)
== END 2020-08-19 22:59 | DRG 853 ==
LOC: EDBD 12:47 → ER 12:47 → TELE 12:48 → DOU IN ICU 21:30
PROVIDERS: ADMIT Nurse Practitioner Acute Care; ATTEND Internal Medicine
PROC: 5A1955Z Respiratory Ventilation, Greater than 96 Consecutive Hours (ICD-10-PCS; principal; 2020-08-04)
PROC: 0BH17EZ Insertion of Endotracheal Airway into Trachea, Via Natural or Artificial Opening (ICD-10-PCS; 2020-08-04)
PROC: 06HY33Z Insertion of Infusion Device into Lower Vein, Percutaneous Approach (ICD-10-PCS; 2020-08-05)
PROC: 06H033Z Insertion of Infusion Device into Inferior Vena Cava, Percutaneous Approach (ICD-10-PCS; 2020-08-05)
PROC: B549ZZA Ultrasonography of Inferior Vena Cava, Guidance (ICD-10-PCS; 2020-08-05)
PROC: B54CZZA Ultrasonography of Left Lower Extremity Veins, Guidance (ICD-10-PCS; 2020-08-07)
PROC: 04H Lower Arteries, Insertion (ICD-10-PCS; 2020-08-07)
PROC: 02CQ3ZZ Extirpation of Matter from Right Pulmonary Artery, Percutaneous Approach (ICD-10-PCS; 2020-08-11)
PROC: 02HV33Z Insertion of Infusion Device into Superior Vena Cava, Percutaneous Approach (ICD-10-PCS; 2020-08-13)
PROC: B548ZZA Ultrasonography of Superior Vena Cava, Guidance (ICD-10-PCS; 2020-08-13)
PROC: 30233N1 Transfusion of Nonautologous Red Blood Cells into Peripheral Vein, Percutaneous Approach (ICD-10-PCS; 2020-08-15)
DX: A41.9 Sepsis, unspecified organism (principal); I26.99 Other pulmonary embolism without acute cor pulmonale; J18.9 Pneumonia, unspecified organism; J96.21 Acute and chronic respiratory failure with hypoxia; N17.0 Acute kidney failure with tubular necrosis; I21.A1 Myocardial infarction type 2; U07.1 COVID-19; R65.21 Severe sepsis with septic shock; J44.1 Chronic obstructive pulmonary disease with (acute) exacerbation; D68.59 Other primary thrombophilia; E87.0 Hyperosmolality and hypernatremia; I13.0 Hypertensive heart and chronic kidney disease with heart failure and stage 1 through stage 4 chronic kidney disease, or unspecified chronic kidney disease; J44.0 Chronic obstructive pulmonary disease with (acute) lower respiratory infection; J98.11 Atelectasis; D89.839 Cytokine release syndrome, grade unspecified; E55.9 Vitamin D deficiency, unspecified; T38.0X5A Adverse effect of glucocorticoids and synthetic analogues, initial encounter; E88.09 Other disorders of plasma-protein metabolism, not elsewhere classified; E66.01 Morbid (severe) obesity due to excess calories; I27.20 Pulmonary hypertension, unspecified; D69.6 Thrombocytopenia, unspecified; E87.5 Hyperkalemia; Z51.5 Encounter for palliative care; E11.22 Type 2 diabetes mellitus with diabetic chronic kidney disease; Y92.89 Other specified places as the place of occurrence of the external cause; Z68.32 Body mass index [BMI] 32.0-32.9, adult; Z88.8 Allergy status to other drugs, medicaments and biological substances; Z83.3 Family history of diabetes mellitus; Z82.49 Family history of ischemic heart disease and other diseases of the circulatory system; N18.31 Chronic kidney disease, stage 3a; E11.649 Type 2 diabetes mellitus with hypoglycemia without coma; I50.9 Heart failure, unspecified
CPT/HCPCS: 36415; 36569; 36600; 71045; 71275; 74018; 76700; 80048; 80053; 81001; 82306; 82728; 82805; 82962; 83605; 83735; 83880; 84484; 85007; 85025; 85027; 85379; 85610; 85730; 86141; 86850; 86900; 86901; 86920; 87040; 87070; 87077; 87081; 87086; 87186; 87205; 87426; 87804; 93005; 93306; 93970; 94002; 94003; 94640; 96365; 96366; 96372; 96375; 99152; 99153; 99291; C9113; G0378; J0171; J0696; J1100; J1815; J1956; J2185; J2250; J2704; J3480; J7060